=== PATIENT | male | born 1995 | race Caucasian/White ===

== ENCOUNTER 2016-12-21 08:36 | Inpatient (IN) | payer OTHER ==
[2016-12-21 10:33] VITALS: BMI 21.0
--- NOTE | 2016-12-21 13:01 | HP ---
CIWA Score - CIWA Score Nausea/Vomitin (n/v) Muscle Tremors: 3 Anxiety: 5 Agitation: 4-Moderately Restless Paroxysmal Sweats: 1-Minimal Palms Moist Orientation: 0-Oriented Tacttile Disturbances: 3-Moderate Itch/Numb/Burn Auditory Disturbances: 0-None Visual Disturbances: 0-None Headache: 0-None Present CIWA-Ar Total Score: 21 Admission ROS BHS - HPI Chief Complaint: DETOX TX FOR KLONOPIN DEPENDENCE Allergies/Adverse Reactions: Allergies Allergy/AdvReac Type Severity Reaction Status Date / Time Fish Containing Products Allergy Severe Hives Verified 12/21/16 10:23 NKDA Allergy Uncoded 12/21/16 10:38 History of Present Illness: 21 Y/O MALE WITH A HX OF KLONOPIN,CRACK,HEROIN AND MARIJUANA DEPENDENCE ON [facility] SEEKING DETOX TX. PT HAS NOT BEEN GOING TO THE [facility] CLINIC FOR 8 DAYS NOW. ON METHADONE 100 MG PO DAILY BUT MISSED 8 DAYS FROM CLINIC. PT FEELS VERY SICK WITH NAUSEA AND VOMITING NOW. Exam Limitations: No Limitations - Ebola screening Have you traveled outside of the country in the last 21 days: No Have you had contact with anyone from an Ebola affected area: No Have you been sick,other than usual withdrawal symptoms: No Do you have a fever: No - Review of Systems Constitutional: Chills, Loss of Appetite, Night Sweats, Changes in sleep EENT: reports: Tearing, Nose Congestion Respiratory: reports: No Symptoms reported Cardiac: reports: Lightheadedness GI: reports: Constipated, Diarrhea, Nausea, Poor Appetite, Poor Fluid Intake, Vomiting, Abdominal cramping : reports: No Symptoms Reported Musculoskeletal: reports: Back Pain, Joint Pain, Muscle Pain Integumentary: reports: Bruising (IVD TRACKS ON BOTH ELBOWS) Neuro: reports: Tremors, Unsteady Gait, Dizziness Endocrine: reports: No Symptoms Reported Hematology: reports: No Symptoms Reported Psychiatric: reports: Orientated x3, Agitated, Anxious Other Systems: Reviewed and Negative Patient History - Patient Medical History Hx Anemia: No Hx Asthma: No Hx Chronic Obstructive Pulmonary Disease (COPD): No Hx Cardiac Disorders: No Hx Hypertension: No Hx Hypercholesterolemia: No HX Cerebrovascular Accident: No Hx Seizures: No Hx Diabetes: No Hx Gastrointestinal Disorders: Yes (HEARTBURN) Hx Genitourinary Disorders: No Hx Sexually Transmitted Disorders: No Hx Renal Disease (ESRD): No Hx Thyroid Disease: No Hx Human Immunodeficiency Virus (HIV): No (NEGATIVE HX) Hx Hepatitis C: No Hx Depression: No Hx Suicide Attempt: No (DENIES) Hx Bipolar Disorder: No Hx Schizophrenia: No - Patient Surgical History Past Surgical History: No Hx Neurologic Surgery: No Hx Cataract Extraction: No Hx Cardiac Surgery: No Hx Lung Surgery: No Hx Breast Surgery: No Hx Breast Biopsy: No Hx Abdominal Surgery: No Hx Appendectomy: No Hx Cholecystectomy: No Hx Genitourinary Surgery: No Hx Section: No Hx Orthopedic Surgery: No Anesthesia Reaction: No - PPD History Previous Implant?: Yes Documented Results: Negative w/o proof Implanted On Prior [facility] Admission?: No PPD to be Administered?: Yes - Reproductive History Patient is a Female of Child Bearing Age (11 -55 yrs old): No (MALE) - Smoking Cessation Smoking history: Current every day smoker Have you smoked in the past 12 months: Yes Aproximately how many cigarettes per day: 10 Hx Chewing Tobacco Use: No Initiated information on smoking cessation: Yes 'Breaking Loose' booklet given: 12/21/16 - Substance & Tx. History Hx Alcohol Use: No (DENIES) Hx Substance Use: Yes (HEROIN/CRACK/KLONOPIN) Substance Use Type: Cocaine, Heroin, Tranquilizers Hx Substance Use Treatment: Yes ([facility] DETOX; [facility]) - Substances Abused Crack Route: Smoking Frequency: 3-6 times per week Amount used: $100 Age of first use: 21 Date of Last Use: 12/19/16 Heroin Route: Injection Frequency: Daily Amount used: 10 bags Age of first use: 19 Date of Last Use: 12/21/16 Klonopin Route: Oral Frequency: 3-6 times per week Amount used: 2-3 mg. Age of first use: 21 Date of Last Use: 12/19/16 Marijuana Route: Smoking Frequency: 3-6 times per week Amount used: $10 Age of first use: 15 Date of Last Use: 12/15/16 Family Disease History - Family Disease History Family History: Denies Admission Physical Exam BHS - Vital Signs Vital Signs: Vital Signs - 24 hr 12/21/16 10:25 Temperature 98.2 F Pulse Rate 54 L Respiratory 20 Rate Blood Pressure 129/86 - Physical General Appearance: Yes: Moderate Distress, Irritable, Anxious HEENTM: Yes: EOMI, Normocephalic, KAI, Pharynx Normal Respiratory: Yes: Chest Non-Tender, Lungs Clear, Normal Breath Sounds, No Respiratory Distress Neck: Yes: No masses,lesions,Nodules, Supple, Trachea in good position Breast: Yes: Breast Exam Deferred Cardiology: Yes: Regular Rhythm, Regular Rate, S1, S2 Abdominal: Yes: Normal Bowel Sounds, Non Tender, Flat, Soft Genitourinary: Yes: Other (N/C) Musculoskeletal: Yes: full range of Motion, Gait Steady Extremities: Yes: Normal Range of Motion, Non-Tender 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 Cleared for Admission [facility] - Detox or Rehab [facility] Level of Care: Medically Managed Detox Regimen/Protocol: Valium [facility] Breath Alcohol Content Breath Alcohol Content: 0 Urine Drug Screen - Results Drug Screen Negative: No Urine Drug Screen Results: THC-Marijuana, DARYA-Cocaine, OPI-Opiates, BZO- Benzodiazepines, MTD-Methadone, OXY-Oxycodone
[2016-12-21] MEDS ORDERED: MAGNESIUM HYDROX 2400MG/30ML ORAL SUSPENSION 30 ML CUP PO PRN (13:15)
[2016-12-21] MEDS ORDERED: P-EPHED 60MG/TRIPROLIDI 2.5MG TABLET PO PRN (13:15)
[2016-12-21] MEDS ORDERED: MENTHOL/PHENOL 1 EACH UD MM PRN (13:15)
[2016-12-21] MEDS ORDERED: IBUPROFEN 400 MG TABLET (FP) PO PRN (13:15)
[2016-12-21] MEDS ORDERED: MAGNESIUM CITRATE 300 ML BOTTLE PO PRN (13:15)
[2016-12-21] MEDS ORDERED: LOPERAMIDE HCL 2 MG CAPSULE PO PRN (13:15)
[2016-12-21] MEDS ORDERED: guaiFENesin/D-METHORPHAN HB 10 ML UNIT-DOSE CUPS PO PRN (13:15)
[2016-12-21] MEDS ORDERED: ACETAMINOPHEN 325 MG TABLET (FP) PO PRN (13:15)
[2016-12-21] MEDS ORDERED: hydrOXYzine PAMOATE 25 MG CAPSULE (FP) PO PRN (13:15)
[2016-12-21] MEDS ORDERED: diazePAM 5 MG TABLET PO ONE (13:58)
[2016-12-21] MEDS ORDERED: METHADONE HCL 40 MG DISPERSABLE TABLET PO ONE (14:01)
[2016-12-21] MEDS: TRIMETHOBENZAMIDE HCL 200MG/2ML INJ IM PRN ×2 (14:10→20:04)
[2016-12-21] MEDS: NICOTINE 14 MG/24 HOURS TOPICAL PATCH TD SCH (15:01)
[2016-12-21] MEDS: diazePAM 5 MG TABLET PO PRN ×2 (15:04→20:18)
[2016-12-21] MEDS: diazePAM 5 MG TABLET PO SCH ×2 (15:05→23:02)
--- NOTE | 2016-12-21 16:11 | EKG ---
Test Reason : Blood Pressure : / mmHG Vent. Rate : 054 BPM Atrial Rate : 063 BPM P-R Int : 000 ms QRS Dur : 094 ms QT Int : 424 ms P-R-T Axes : 050 063 044 degrees QTc Int : 402 ms SINUS RHYTHM WITH COMPLETE HEART BLOCK AND JUNCTIONAL RHYTHM ABNORMAL ECG NO PREVIOUS ECGS AVAILABLE Confirmed by SAM OBREGON MD ([id number]) on 12/21/2016 4:11:10 PM Referred By: Trevin Berry Confirmed By:SAM OBREGON MD
[2016-12-21] MEDS: MAG HYDROX/AL HYDROX/SIMETH 30 ML UNIT-DOSE CUP PO PRN (17:31)
[2016-12-21 17:32] LABS: URINE APPEARANCE CLOUDY; URINE BILIRUBIN NEGATIVE (NEGATIVE); URINE BLOOD NEGATIVE (NEGATIVE); URINE COLOR YELLOW; URINE GLUCOSE (UA) 1+ (NEGATIVE); URINE KETONE 2+ (NEGATIVE); URINE LEUK ESTERASE NEGATIVE (NEGATIVE); URINE NITRITE NEGATIVE (NEGATIVE); URINE UROBILINOGEN NEGATIVE E.U./dl (0.2-1.0)
[2016-12-21 17:34] LABS: URINE PROTEIN 1+ (NEGATIVE)
[2016-12-21 19:09] LABS: URINE BACTERIA RARE /hpf (NONE SEEN); URINE MUCUS MODERATE; URINE RBC 2 /hpf (0-3); URINE WBC 1 /hpf (3-5)
[2016-12-21] MEDS: THIAMINE HCL 100 MG TABLET (FP) PO SCH (23:03)
[2016-12-21] MEDS ORDERED: ONDANSETRON *ODT* 4 MG TABLET SL PRN (23:12)
[2016-12-22] MEDS: MAG HYDROX/AL HYDROX/SIMETH 30 ML UNIT-DOSE CUP PO PRN (00:53)
[2016-12-22] MEDS ORDERED: cloNIDine HCL 0.1 MG TABLET PO ONE (01:54)
[2016-12-22] MEDS: diazePAM 5 MG TABLET PO PRN ×3 (02:01→17:55)
[2016-12-22] MEDS: TRIMETHOBENZAMIDE HCL 200MG/2ML INJ IM PRN (02:04)
[2016-12-22] MEDS ORDERED: METHADONE HCL 40 MG DISPERSABLE TABLET ONE (04:19)
[2016-12-22] MEDS ORDERED: METHADONE HCL 10 MG TABLET ONE (04:19)
[2016-12-22] MEDS: diazePAM 5 MG TABLET PO SCH ×3 (05:54→22:10)
[2016-12-22] MEDS ORDERED: METHADONE HCL 10 MG TABLET PO SCH ×2 (06:00)
[2016-12-22] MEDS ORDERED: METHADONE 40 MG, METHADONE 10 MG PO ONE (06:00)
[2016-12-22 10:04] LABS: MCH 31.1 pg (25.7-33.7); MCHC 33.9 g/dl (32.0-35.9); MEAN CELL VOLUME 91.8 fl (80-96); MEAN PLT VOLUME 8.4 fl (7.5-11.1); PLATELET COUNT 246 K/MM3 (134-434); RDW 12.8 % (11.9-15.9)
[2016-12-22] MEDS: PRENATAL VITAMINS W/ FOLIC ACID TABLET (FP) PO SCH (10:12)
[2016-12-22] MEDS: NICOTINE 14 MG/24 HOURS TOPICAL PATCH TD SCH (10:12)
[2016-12-22 10:44] LABS: ALBUMIN 4.6 g/dl (3.4-5.0); ALK PHOS 104 U/L (45-117); ANION GAP 11 (8-16); BILIRUBIN,TOTAL 0.4 mg/dL (0.2-1.0); CALCIUM 9.9 mg/dL (8.5-10.1); CO2 28 mmol/L (21-32); CREATININE 0.8 mg/dL (0.7-1.3); GLUCOSE,RANDOM 120 mg/dL (74-106); SGPT/ALT 23 U/L (12-78); TOT PROT 7.9 g/dl (6.4-8.2)
--- NOTE | 2016-12-22 11:30 | PN ---
S CIWA - CIWA Score Nausea/Vomitin-Mild Nausea/No Vomiting Muscle Tremors: 4-Moderate,w/Arms Extend Anxiety: 3 Agitation: 4-Moderately Restless Paroxysmal Sweats: 3 Orientation: 0-Oriented Tacttile Disturbances: 0-None Auditory Disturbances: 0-None Visual Disturbances: 0-None Headache: 0-None Present CIWA-Ar Total Score: 15 BHS Progress Note (SOAP) Subjective: sweats nausea tired interrupted sleep body aches Objective: 12/22/16 11:28 Vital Signs Temperature 98.1 F 12/22/16 09:46 Pulse Rate 68 12/22/16 09:46 Respiratory Rate 20 12/22/16 09:46 Blood Pressure 109/68 12/22/16 09:46 O2 Sat by Pulse Oximetry (%) Laboratory Tests 12/21/16 12/22/16 13:00 06:10 WBC 8.0 RBC 4.15 Hgb 12.9 Hct 38.1 MCV 91.8 MCHC 33.9 RDW 12.8 Plt Count 246 MPV 8.4 Urine Color Yellow Urine Appearance Cloudy Urine pH 6.0 Ur Specific [place] 1.033 Urine Protein 1+ H Urine Glucose (UA) 1+ H Urine Ketones 2+ H Urine Blood Negative Urine Nitrite Negative Urine Bilirubin Negative Urine Urobilinogen Negative Ur Leukocyte Esterase Negative Urine RBC 2 Urine WBC 1 Ur Epithelial Cells Rare Urine Bacteria Rare Urine Mucus Moderate labs pending awake/alert ambulating no acute distress Assessment: 12/22/16 11:30 withdrawal sx Plan: continue detox increase fluids tigan or zofran ordered if needed.
[2016-12-22 11:37] LABS: SGOT/AST 4 U/L (15-37)
--- NOTE | 2016-12-22 15:04 | EKG ---
Test Reason : Blood Pressure : / mmHG Vent. Rate : 061 BPM Atrial Rate : 061 BPM P-R Int : 140 ms QRS Dur : 102 ms QT Int : 440 ms P-R-T Axes : 063 048 034 degrees QTc Int : 442 ms SINUS RHYTHM WITH MARKED SINUS ARRHYTHMIA OTHERWISE NORMAL ECG WHEN COMPARED WITH ECG OF 21-DEC-2016 13:33, SINUS RHYTHM HAS REPLACED JUNCTIONAL RHYTHM Confirmed by CHRISTOPHER FORBES MD ([id number]) on 12/22/2016 3:04:17 PM Referred By: Trevin Berry Confirmed By:CHRISTOPHER FORBES MD
[2016-12-22] MEDS: THIAMINE HCL 100 MG TABLET (FP) PO SCH (22:09)
[2016-12-22] MEDS: diphenhydrAMINE HCL 50 MG CAPSULE PO PRN (22:10)
[2016-12-23] MEDS ORDERED: METHADONE HCL 10 MG TABLET ONE (05:23)
[2016-12-23] MEDS ORDERED: METHADONE HCL 40 MG DISPERSABLE TABLET ONE (05:24)
[2016-12-23] MEDS ORDERED: METHADONE 40 MG, METHADONE 20 MG PO ONE (06:00)
[2016-12-23] MEDS ORDERED: METHADONE HCL 10 MG TABLET PO SCH ×2 (06:00)
[2016-12-23] MEDS: diazePAM 5 MG TABLET PO PRN ×3 (06:09→17:36)
[2016-12-23] MEDS: NICOTINE 14 MG/24 HOURS TOPICAL PATCH TD SCH (10:07)
[2016-12-23] MEDS: PRENATAL VITAMINS W/ FOLIC ACID TABLET (FP) PO SCH (10:08)
[2016-12-23] MEDS: diazePAM 5 MG TABLET PO SCH ×2 (10:08→22:04)
--- NOTE | 2016-12-23 10:16 | PN ---
S CIWA - CIWA Score Nausea/Vomitin Muscle Tremors: 3 Anxiety: 3 Agitation: 3 Paroxysmal Sweats: 1-Minimal Palms Moist Orientation: 0-Oriented Tacttile Disturbances: 1-Very Mild Itch/Numbness Auditory Disturbances: 1-Very Mild Visual Disturbances: 1-Very Mild Sensitivity Headache: 2-Mild CIWA-Ar Total Score: 18 BHS Progress Note (SOAP) Subjective: ALERT,IRRITABLE,ANXIOUS,INTERRUPTED SLEEP,PAIN IN THE BODY AND BACK Objective: 12/23/16 10:13 Vital Signs Temperature 98.4 F 12/23/16 09:54 Pulse Rate 79 12/23/16 09:54 Respiratory Rate 16 12/23/16 09:54 Blood Pressure 115/64 12/23/16 09:54 O2 Sat by Pulse Oximetry (%) EKG SINUS RHYTHM WITH SINUS ARRHYTHMIA Laboratory Last Values WBC 8.0 K/mm3 (4.0-10.0) 12/22/16 06:10 RBC 4.15 M/mm3 (4.00-5.60) 12/22/16 06:10 Hgb 12.9 GM/dL (11.7-16.9) 12/22/16 06:10 Hct 38.1 % (35.4-49) 12/22/16 06:10 MCV 91.8 fl (80-96) 12/22/16 06:10 MCHC 33.9 g/dl (32.0-35.9) 12/22/16 06:10 RDW 12.8 % (11.9-15.9) 12/22/16 06:10 Plt Count 246 K/MM3 (134-434) 12/22/16 06:10 MPV 8.4 fl (7.5-11.1) 12/22/16 06:10 Sodium 139 mmol/L (136-145) 12/22/16 06:10 Potassium 4.6 mmol/L (3.5-5.1) 12/22/16 06:10 Chloride 100 mmol/L (98-107) 12/22/16 06:10 Carbon Dioxide 28 mmol/L (21-32) 12/22/16 06:10 Anion Gap 11 (8-16) 12/22/16 06:10 BUN 8 mg/dL (7-18) 12/22/16 06:10 Creatinine 0.8 mg/dL (0.7-1.3) 12/22/16 06:10 Creat Clearance w eGFR > 60 (>60) 12/22/16 06:10 Random Glucose 120 mg/dL (74-106) H 12/22/16 06:10 Calcium 9.9 mg/dL (8.5-10.1) 12/22/16 06:10 Total Bilirubin 0.4 mg/dL (0.2-1.0) 12/22/16 06:10 AST 4 U/L (15-37) L 12/22/16 06:10 ALT 23 U/L (12-78) 12/22/16 06:10 Alkaline Phosphatase 104 U/L (45-117) 12/22/16 06:10 Total Protein 7.9 g/dl (6.4-8.2) 12/22/16 06:10 Albumin 4.6 g/dl (3.4-5.0) 12/22/16 06:10 Urine Color Yellow 12/21/16 13:00 Urine Appearance Cloudy 12/21/16 13:00 Urine pH 6.0 (5.0-8.0) 12/21/16 13:00 Ur Specific [place] 1.033 (1.001-1.035) 12/21/16 13:00 Urine Protein 1+ (NEGATIVE) H 12/21/16 13:00 Urine Glucose (UA) 1+ (NEGATIVE) H 12/21/16 13:00 Urine Ketones 2+ (NEGATIVE) H 12/21/16 13:00 Urine Blood Negative (NEGATIVE) 12/21/16 13:00 Urine Nitrite Negative (NEGATIVE) 12/21/16 13:00 Urine Bilirubin Negative (NEGATIVE) 12/21/16 13:00 Urine Urobilinogen Negative E.U./dl (0.2-1.0) 12/21/16 13:00 Ur Leukocyte Esterase Negative (NEGATIVE) 12/21/16 13:00 Urine RBC 2 /hpf (0-3) 12/21/16 13:00 Urine WBC 1 /hpf (3-5) 12/21/16 13:00 Ur Epithelial Cells Rare /hpf (FEW) 12/21/16 13:00 Urine Bacteria Rare /hpf (NONE SEEN) 12/21/16 13:00 Urine Mucus Moderate 12/21/16 13:00 RPR Titer Nonreactive (NONREACTIVE) 12/22/16 06:10 Hepatitis C Antibody <0.1 s/co ratio (0.0-0.9) 12/21/16 13:10 Assessment: 12/23/16 10:15 WITHDRAWAL SYMPTOM Plan: CONTINUE DETOX
[2016-12-23] MEDS: NICOTINE POLACRILEX 2 MG GUM BUC PRN ×2 (12:45→20:01)
[2016-12-23] MEDS: diphenhydrAMINE HCL 50 MG CAPSULE PO PRN (22:04)
[2016-12-23] MEDS: THIAMINE HCL 100 MG TABLET (FP) PO SCH (22:04)
[2016-12-24] MEDS ORDERED: METHADONE HCL 10 MG TABLET ONE (05:42)
[2016-12-24] MEDS ORDERED: METHADONE HCL 40 MG DISPERSABLE TABLET ONE (05:42)
[2016-12-24] MEDS: diazePAM 5 MG TABLET PO PRN (05:43)
[2016-12-24] MEDS ORDERED: METHADONE HCL 10 MG TABLET PO SCH ×2 (06:00)
[2016-12-24] MEDS ORDERED: METHADONE 40 MG, METHADONE 30 MG PO ONE (06:00)
[2016-12-24] MEDS: diazePAM 5 MG TABLET PO SCH ×2 (11:10→22:41)
[2016-12-24] MEDS: NICOTINE 14 MG/24 HOURS TOPICAL PATCH TD SCH (11:10)
[2016-12-24] MEDS: PRENATAL VITAMINS W/ FOLIC ACID TABLET (FP) PO SCH (11:10)
[2016-12-24] MEDS: NICOTINE POLACRILEX 2 MG GUM BUC PRN ×2 (11:34→15:32)
--- NOTE | 2016-12-24 12:11 | PN ---
BHS Progress Note (SOAP) Subjective: Irritability, sleeplessness, generalized pain Objective: 12/24/16 12:10 Vital Signs - 8 hr 12/24/16 12/24/16 06:00 11:16 Temperature 97.7 F 98.1 F Pulse Rate 65 89 Respiratory 16 16 Rate Blood Pressure 97/61 126/71 Laboratory Last Values WBC 8.0 K/mm3 (4.0-10.0) 12/22/16 06:10 RBC 4.15 M/mm3 (4.00-5.60) 12/22/16 06:10 Hgb 12.9 GM/dL (11.7-16.9) 12/22/16 06:10 Hct 38.1 % (35.4-49) 12/22/16 06:10 MCV 91.8 fl (80-96) 12/22/16 06:10 MCHC 33.9 g/dl (32.0-35.9) 12/22/16 06:10 RDW 12.8 % (11.9-15.9) 12/22/16 06:10 Plt Count 246 K/MM3 (134-434) 12/22/16 06:10 MPV 8.4 fl (7.5-11.1) 12/22/16 06:10 Sodium 139 mmol/L (136-145) 12/22/16 06:10 Potassium 4.6 mmol/L (3.5-5.1) 12/22/16 06:10 Chloride 100 mmol/L (98-107) 12/22/16 06:10 Carbon Dioxide 28 mmol/L (21-32) 12/22/16 06:10 Anion Gap 11 (8-16) 12/22/16 06:10 BUN 8 mg/dL (7-18) 12/22/16 06:10 Creatinine 0.8 mg/dL (0.7-1.3) 12/22/16 06:10 Creat Clearance w eGFR > 60 (>60) 12/22/16 06:10 Random Glucose 120 mg/dL (74-106) H 12/22/16 06:10 Calcium 9.9 mg/dL (8.5-10.1) 12/22/16 06:10 Total Bilirubin 0.4 mg/dL (0.2-1.0) 12/22/16 06:10 AST 4 U/L (15-37) L 12/22/16 06:10 ALT 23 U/L (12-78) 12/22/16 06:10 Alkaline Phosphatase 104 U/L (45-117) 12/22/16 06:10 Total Protein 7.9 g/dl (6.4-8.2) 12/22/16 06:10 Albumin 4.6 g/dl (3.4-5.0) 12/22/16 06:10 Urine Color Yellow 12/21/16 13:00 Urine Appearance Cloudy 12/21/16 13:00 Urine pH 6.0 (5.0-8.0) 12/21/16 13:00 Ur Specific [place] 1.033 (1.001-1.035) 12/21/16 13:00 Urine Protein 1+ (NEGATIVE) H 12/21/16 13:00 Urine Glucose (UA) 1+ (NEGATIVE) H 12/21/16 13:00 Urine Ketones 2+ (NEGATIVE) H 12/21/16 13:00 Urine Blood Negative (NEGATIVE) 12/21/16 13:00 Urine Nitrite Negative (NEGATIVE) 12/21/16 13:00 Urine Bilirubin Negative (NEGATIVE) 12/21/16 13:00 Urine Urobilinogen Negative E.U./dl (0.2-1.0) 12/21/16 13:00 Ur Leukocyte Esterase Negative (NEGATIVE) 12/21/16 13:00 Urine RBC 2 /hpf (0-3) 12/21/16 13:00 Urine WBC 1 /hpf (3-5) 12/21/16 13:00 Ur Epithelial Cells Rare /hpf (FEW) 12/21/16 13:00 Urine Bacteria Rare /hpf (NONE SEEN) 12/21/16 13:00 Urine Mucus Moderate 12/21/16 13:00 RPR Titer Nonreactive (NONREACTIVE) 12/22/16 06:10 Hepatitis C Antibody <0.1 s/co ratio (0.0-0.9) 12/21/16 13:10 Labs noted Assessment: 12/24/16 12:10 withdrawal sx Plan: continue detox
[2016-12-24] MEDS: THIAMINE HCL 100 MG TABLET (FP) PO SCH (22:40)
[2016-12-24] MEDS: diphenhydrAMINE HCL 50 MG CAPSULE PO PRN (22:41)
[2016-12-25] MEDS ORDERED: METHADONE HCL 10 MG TABLET PO SCH (06:00)
[2016-12-25] MEDS ORDERED: METHADONE HCL 40 MG DISPERSABLE TABLET PO SCH (06:00)
[2016-12-25] MEDS ORDERED: diazePAM 5 MG TABLET PO SCH (10:00)
--- NOTE | 2016-12-25 10:01 | DS ---
[facility] Detox Discharge Summary Admission Date: 12/21/16 Discharge Date: 12/25/16 - History Present History: Alcohol Dependence, Cocaine Dependence, Sedative Dependence, MMTP Pertinent Past History: Denies - Physical Exam Results Vital Signs: Vital Signs Temperature 97.3 F L 12/25/16 06:00 Pulse Rate 61 12/25/16 06:00 Respiratory Rate 16 12/25/16 06:00 Blood Pressure 104/60 12/25/16 06:00 O2 Sat by Pulse Oximetry (%) Laboratory Last Values WBC 8.0 K/mm3 (4.0-10.0) 12/22/16 06:10 RBC 4.15 M/mm3 (4.00-5.60) 12/22/16 06:10 Hgb 12.9 GM/dL (11.7-16.9) 12/22/16 06:10 Hct 38.1 % (35.4-49) 12/22/16 06:10 MCV 91.8 fl (80-96) 12/22/16 06:10 MCHC 33.9 g/dl (32.0-35.9) 12/22/16 06:10 RDW 12.8 % (11.9-15.9) 12/22/16 06:10 Plt Count 246 K/MM3 (134-434) 12/22/16 06:10 MPV 8.4 fl (7.5-11.1) 12/22/16 06:10 Sodium 139 mmol/L (136-145) 12/22/16 06:10 Potassium 4.6 mmol/L (3.5-5.1) 12/22/16 06:10 Chloride 100 mmol/L (98-107) 12/22/16 06:10 Carbon Dioxide 28 mmol/L (21-32) 12/22/16 06:10 Anion Gap 11 (8-16) 12/22/16 06:10 BUN 8 mg/dL (7-18) 12/22/16 06:10 Creatinine 0.8 mg/dL (0.7-1.3) 12/22/16 06:10 Creat Clearance w eGFR > 60 (>60) 12/22/16 06:10 Random Glucose 120 mg/dL (74-106) H 12/22/16 06:10 Calcium 9.9 mg/dL (8.5-10.1) 12/22/16 06:10 Total Bilirubin 0.4 mg/dL (0.2-1.0) 12/22/16 06:10 AST 4 U/L (15-37) L 12/22/16 06:10 ALT 23 U/L (12-78) 12/22/16 06:10 Alkaline Phosphatase 104 U/L (45-117) 12/22/16 06:10 Total Protein 7.9 g/dl (6.4-8.2) 12/22/16 06:10 Albumin 4.6 g/dl (3.4-5.0) 12/22/16 06:10 Urine Color Yellow 12/21/16 13:00 Urine Appearance Cloudy 12/21/16 13:00 Urine pH 6.0 (5.0-8.0) 12/21/16 13:00 Ur Specific [place] 1.033 (1.001-1.035) 12/21/16 13:00 Urine Protein 1+ (NEGATIVE) H 12/21/16 13:00 Urine Glucose (UA) 1+ (NEGATIVE) H 12/21/16 13:00 Urine Ketones 2+ (NEGATIVE) H 12/21/16 13:00 Urine Blood Negative (NEGATIVE) 12/21/16 13:00 Urine Nitrite Negative (NEGATIVE) 12/21/16 13:00 Urine Bilirubin Negative (NEGATIVE) 12/21/16 13:00 Urine Urobilinogen Negative E.U./dl (0.2-1.0) 12/21/16 13:00 Ur Leukocyte Esterase Negative (NEGATIVE) 12/21/16 13:00 Urine RBC 2 /hpf (0-3) 12/21/16 13:00 Urine WBC 1 /hpf (3-5) 12/21/16 13:00 Ur Epithelial Cells Rare /hpf (FEW) 12/21/16 13:00 Urine Bacteria Rare /hpf (NONE SEEN) 12/21/16 13:00 Urine Mucus Moderate 12/21/16 13:00 RPR Titer Nonreactive (NONREACTIVE) 12/22/16 06:10 Hepatitis C Antibody <0.1 s/co ratio (0.0-0.9) 12/21/16 13:10 labs noted Pertinent Admission Physical Exam Findings: Withdrawal Symptoms - Treatment Hospital Course: Detox Protocol Followed, Detoxed Safely, Responded well, Discharged Condition Good - Medication Discharge Medications: Ambulatory Orders NK [No Known Home Medication] 12/21/16 - Diagnosis (1) Cannabis dependence, uncomplicated Current Visit: Yes Status: Acute (2) Cocaine dependence, uncomplicated Current Visit: Yes Status: Acute (3) Sedative, hypnotic or anxiolytic dependence with withdrawal, uncomplicated Current Visit: Yes Status: Acute (4) Methadone maintenance therapy patient Current Visit: Yes Status: Chronic (5) Alcohol dependence with withdrawal, uncomplicated Current Visit: Yes Status: Acute - AMA Did Patient Leave Against Medical Advice: No
[2016-12-25 10:12] VITALS: BP 120/56; PULSE 77; TEMP 97.2
[2016-12-26] MEDS ORDERED: METHADONE 80 MG, METHADONE 10 MG PO ONE (06:00)
[2016-12-26] MEDS ORDERED: METHADONE HCL 10 MG TABLET PO SCH ×2 (06:00)
[2016-12-27] MEDS ORDERED: METHADONE 80 MG, METHADONE 20 MG PO SCH (06:00)
[2016-12-27] MEDS ORDERED: METHADONE HCL 10 MG TABLET PO SCH ×3 (06:00)
== END 2016-12-25 09:35 | disposition home or self-care (01) | DRG 773 ==
LOC: YASAS 08:36 → Y6N 12:00
PROVIDERS: ADMIT Internal Medicine Addiction Medicine; ATTEND Internal Medicine Addiction Medicine
PROC: HZ2ZZZZ Detoxification Services for Substance Abuse Treatment (ICD-10-PCS; principal; 2016-12-25)
DX: F11.20 Opioid dependence, uncomplicated (principal); F13.230 Sedative, hypnotic or anxiolytic dependence with withdrawal, uncomplicated; F10.230 Alcohol dependence with withdrawal, uncomplicated; F14.20 Cocaine dependence, uncomplicated; F12.20 Cannabis dependence, uncomplicated; F17.210 Nicotine dependence, cigarettes, uncomplicated
CPT/HCPCS: 36415; 80053; 81003; 81015; 85027; 86593; 93005; 93010

== ENCOUNTER 2017-10-31 10:08 | Inpatient (IN) | payer OTHER ==
[2017-10-31 10:26] VITALS: BMI 22.8
--- NOTE | 2017-10-31 11:13 | HP ---
COWS - Scale Resting Pulse: 1= IN 81-100 Sweatin= Chills/Flushing Restless Observation: 3= Extraneous Movement Pupil Size: 2= Moderately Dilated Bone or Joint Aches: 2= Severe Diffuse Aches Runny Nose/ Eye Tearin= Runny Nose/Eyes GI Upset > 30mins: 2= Nausea/Diarrhea Tremor Observation: 2= Slight Tremor Visible Yawning Observation: 1= 1-2x During Session Anxiety or Irritability: 2=Irritable/Anxious Goose Flesh Skin: 0=Smooth Skin COWS Score: 18 Admission ROS S - HPI Chief Complaint: i need help to stop using heroin Allergies/Adverse Reactions: Allergies Allergy/AdvReac Type Severity Reaction Status Date / Time Fish Containing Products Allergy Severe Hives Verified 10/31/17 11:06 No Known Drug Allergies Allergy Verified 10/31/17 11:06 NKDA Allergy Uncoded 10/31/17 11:06 History of Present Illness: this 22 years old male with heroin dependence,seeking detox,last detox 12/21/16 to 12/25/16 [facility] also abuse cocaine,benzo,marijuana history of fx of left wrist nicotine dependence longest period of sobriety 2 years Exam Limitations: No Limitations - Ebola screening Have you traveled outside of the country in the last 21 days: No Have you had contact with anyone from an Ebola affected area: No Have you been sick,other than usual withdrawal symptoms: No Do you have a fever: No - Review of Systems Constitutional: Chills, Loss of Appetite, Malaise, Night Sweats, Changes in sleep, Unexplained wgt Loss EENT: reports: Tearing, Nose Congestion Respiratory: reports: No Symptoms reported, Shortness of Breath Cardiac: reports: No Symptoms Reported GI: reports: Diarrhea, Nausea, Poor Appetite, Vomiting : reports: No Symptoms Reported Musculoskeletal: reports: Back Pain, Joint Pain, Muscle Pain Integumentary: reports: Dryness Neuro: reports: Headache, Tremors Endocrine: reports: No Symptoms Reported Hematology: reports: No Symptoms Reported Psychiatric: reports: Depressed Other Systems: Reviewed and Negative Patient History - Patient Medical History Hx Anemia: No Hx Asthma: No Hx Chronic Obstructive Pulmonary Disease (COPD): No Hx Cancer: No Hx Cardiac Disorders: No Hx Congestive Heart Failure: No Hx Hypertension: No Hx Hypercholesterolemia: No Hx Pacemaker: No HX Cerebrovascular Accident: No Hx Seizures: No Hx Dementia: No Hx Diabetes: No Hx Gastrointestinal Disorders: Yes (HEARTBURN) Hx Liver Disease: No Hx Genitourinary Disorders: No Hx Sexually Transmitted Disorders: No Hx Renal Disease (ESRD): No Hx Thyroid Disease: No Hx Human Immunodeficiency Virus (HIV): No (NEGATIVE HX) Hx Hepatitis C: No Hx Depression: No Hx Suicide Attempt: No (DENIES) Hx Bipolar Disorder: No Hx Schizophrenia: No Other Medical History: no suicidal,no homicidal,depression - Patient Surgical History Past Surgical History: No Hx Neurologic Surgery: No Hx Cataract Extraction: No Hx Cardiac Surgery: No Hx Lung Surgery: No Hx Breast Surgery: No Hx Breast Biopsy: No Hx Abdominal Surgery: No Hx Appendectomy: No Hx Cholecystectomy: No Hx Genitourinary Surgery: No Hx Section: No Hx Orthopedic Surgery: No Anesthesia Reaction: No - PPD History Previous Implant?: Yes Documented Results: Negative w/proof Implanted On Prior [facility] Admission?: Yes Date: 12/23/16 Results: 0 mm PPD to be Administered?: No - Smoking Cessation Smoking history: Current every day smoker Have you smoked in the past 12 months: Yes Aproximately how many cigarettes per day: 10 Hx Chewing Tobacco Use: No Initiated information on smoking cessation: Yes 'Breaking Loose' booklet given: 10/31/17 - Substance & Tx. History Hx Alcohol Use: No Hx Substance Use: Yes Substance Use Type: Cocaine, Heroin, Marijuana Hx Substance Use Treatment: Yes ([facility] 12/21/16 to 12/25/16) - Substances Abused Heroin Route: Injection Frequency: Daily Amount used: 5 BAGS Age of first use: 20 Date of Last Use: 10/31/17 Marijuana/Hashish Route: Smoking Frequency: Daily Amount used: 1 JOINT Age of first use: 14 Date of Last Use: 10/28/17 Crack Route: Smoking Frequency: 1-3 times last 30 days Amount used: 1 GRAM Age of first use: 20 Date of Last Use: 10/24/17 Alprazolam (Xanax) Route: Oral Frequency: 1-3 times last 30 days Amount used: 0.25MG Age of first use: 22 Date of Last Use: 10/29/17 Family Disease History - Family Disease History Family History: Denies Admission Physical Exam BHS - Vital Signs Vital Signs: Vital Signs - 24 hr 10/31/17 10:15 Temperature 98.2 F Pulse Rate 92 H Respiratory 18 Rate Blood Pressure 124/80 - Physical General Appearance: Yes: Moderate Distress, Tremorous, Irritable, Sweating, Anxious HEENTM: Yes: KAI, Pharynx Normal, Nasal Congestion Respiratory: Yes: Lungs Clear, Normal Breath Sounds, No Respiratory Distress Neck: Yes: Within Normal Limits, Supple, Trachea in good position Breast: Yes: Within Normal Limits Cardiology: Yes: Within Normal Limits, Regular Rhythm, Regular Rate, S1, S2 Abdominal: Yes: Within Normal Limits, Normal Bowel Sounds, Non Tender, Flat Genitourinary: Yes: Within Normal Limits Back: Yes: Normal Inspection, Muscle Spasm Musculoskeletal: Yes: Back pain, Joint Stiffness, Muscle Pain Extremities: Yes: Tremors 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, 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 Oriented, Alert, Motor Strength 5/5 Integumentary: Yes: Dry, Track [place] Lymphatic: Yes: Within Normal Limits - Diagnostic (1) Opioid dependence with withdrawal Current Visit: Yes Status: Acute (2) Cocaine dependence Current Visit: Yes Status: Acute (3) Cannabis dependence Current Visit: Yes Status: Acute (4) Nicotine dependence Current Visit: Yes Status: Acute (5) Depression Current Visit: Yes Status: Acute (6) Weight loss Current Visit: Yes Status: Acute Cleared for Admission [facility] - Detox or Rehab [facility] Level of Care: Medically Managed Detox Regimen/Protocol: Methadone [facility] Breath Alcohol Content Breath Alcohol Content: 0 Urine Drug Screen - Results Drug Screen Negative: No Urine Drug Screen Results: THC-Marijuana, DARYA-Cocaine, OPI-Opiates, AMP- Amphetamines, MET-Methamphetamine, BZO-Benzodiazepines, MTD-Methadone, OXY- Oxycodone
[2017-10-31] MEDS ORDERED: MAGNESIUM CITRATE 300 ML BOTTLE PO PRN (11:34)
[2017-10-31] MEDS ORDERED: MAGNESIUM HYDROX 2400MG/30ML ORAL SUSPENSION 30 ML CUP PO PRN (11:34)
[2017-10-31] MEDS ORDERED: MENTHOL/PHENOL 1 EACH UD MM PRN (11:34)
[2017-10-31] MEDS ORDERED: ACETAMINOPHEN 325 MG TABLET (FP) PO PRN (11:34)
[2017-10-31] MEDS ORDERED: LOPERAMIDE HCL 2 MG CAPSULE PO PRN (11:34)
[2017-10-31] MEDS ORDERED: guaiFENesin/D-METHORPHAN HB 10 ML UNIT-DOSE CUPS PO PRN (11:34)
[2017-10-31] MEDS ORDERED: P-EPHED 60MG/TRIPROLIDI 2.5MG TABLET PO PRN (11:34)
[2017-10-31] MEDS ORDERED: METHADONE HCL 10 MG TABLET (FOR DETOX USE ONLY) PO ONE ×2 (12:15→23:00)
[2017-10-31] MEDS: diazePAM 5 MG TABLET PO PRN ×3 (12:49→20:24)
[2017-10-31] MEDS: cloNIDine HCL 0.1 MG TABLET PO SCH ×2 (12:50→22:05)
[2017-10-31] MEDS: NICOTINE 21 MG/24 HOURS TOPICAL PATCH TD SCH (12:50)
[2017-10-31] MEDS: MAG HYDROX/AL HYDROX/SIMETH 30 ML UNIT-DOSE CUP PO PRN (12:55)
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
[2017-10-31] MEDS: CYCLOBENZAPRINE HCL 10 MG TABLET (FP) PO PRN (22:05)
[2017-10-31] MEDS: THIAMINE HCL 100 MG TABLET (FP) PO SCH (22:05)
[2017-10-31 22:31] LABS: URINE APPEARANCE TURBID; URINE BILIRUBIN NEGATIVE (NEGATIVE); URINE BLOOD NEGATIVE (NEGATIVE); URINE COLOR YELLOW; URINE GLUCOSE (UA) NEGATIVE (NEGATIVE); URINE KETONE TRACE (NEGATIVE); URINE LEUK ESTERASE NEGATIVE (NEGATIVE); URINE NITRITE NEGATIVE (NEGATIVE); URINE PROTEIN NEGATIVE (NEGATIVE); URINE UROBILINOGEN NEGATIVE mg/dL (0.2-1.0)
[2017-11-01] MEDS: diazePAM 5 MG TABLET PO PRN ×5 (00:31→20:05)
[2017-11-01] MEDS: NICOTINE POLACRILEX 2 MG GUM BUC PRN (06:07)
[2017-11-01] MEDS ORDERED: TRIMETHOBENZAMIDE HCL 200MG/2ML INJ IM ONE (09:26)
[2017-11-01] MEDS ORDERED: METHADONE DETOX 10 MG/1 ML [20ML VIAL] IM ONE (09:29)
[2017-11-01 09:49] LABS: HEMATOCRIT 41.6 % (35.4-49); HEMOGLOBIN 13.9 GM/dL (11.7-16.9); MCH 31.2 pg (25.7-33.7); MCHC 33.4 g/dl (32.0-35.9); MEAN CELL VOLUME 93.6 fl (80-96); MEAN PLT VOLUME 7.8 fl (7.5-11.1); PLATELET COUNT 324 K/MM3 (134-434); RBC 4.44 M/mm3 (4.00-5.60); RDW 13.8 % (11.9-15.9); WHITE BLOOD COUNT 9.5 K/mm3 (4.0-10.0)
--- NOTE | 2017-11-01 09:51 | EKG ---
Test Reason : Blood Pressure : / mmHG Vent. Rate : 075 BPM Atrial Rate : 075 BPM P-R Int : 136 ms QRS Dur : 104 ms QT Int : 366 ms P-R-T Axes : 062 058 053 degrees QTc Int : 408 ms SINUS RHYTHM WITH MARKED SINUS ARRHYTHMIA POSSIBLE LEFT ATRIAL ENLARGEMENT BORDERLINE ECG WHEN COMPARED WITH ECG OF 22-DEC-2016 07:15, NO SIGNIFICANT CHANGE WAS FOUND Confirmed by MD Ayan, Kishore ([id number]) on 11/01/2017 9:51:12 AM Referred By: Confirmed By:Kishore Botello MD
[2017-11-01 09:54] LABS: CHLORIDE 99 mmol/L (98-107); POTASSIUM 3.7 mmol/L (3.5-5.1); SODIUM 136 mmol/L (136-145)
[2017-11-01] MEDS ORDERED: METHADONE HCL 10 MG TABLET (FOR DETOX USE ONLY) PO ONE (10:00)
[2017-11-01 10:15] LABS: ALBUMIN 4.5 g/dl (3.4-5.0); ALK PHOS 92 U/L (45-117); ANION GAP 8 (8-16); BILIRUBIN,TOTAL 0.7 mg/dL (0.2-1.0); BLOOD UREA NITROGEN 10 mg/dL (7-18); CALCIUM 9.8 mg/dL (8.5-10.1); CO2 29 mmol/L (21-32); CREATININE 0.7 mg/dL (0.7-1.3); GLUCOSE,RANDOM 109 mg/dL (74-106); SGPT/ALT 22 U/L (12-78); TOT PROT 8.3 g/dl (6.4-8.2)
[2017-11-01 10:16] LABS: SGOT/AST < 3 U/L (15-37)
--- NOTE | 2017-11-01 10:24 | PN ---
[facility] CIWA - CIWA Score Nausea/Vomitin Muscle Tremors: 4-Moderate,w/Arms Extend Anxiety: 3 Agitation: 3 Paroxysmal Sweats: 3 Orientation: 0-Oriented Tacttile Disturbances: 0-None Auditory Disturbances: 0-None Visual Disturbances: 0-None Headache: 1-Very Mild CIWA-Ar Total Score: 16 BHS COWS - Scale Resting Pulse: 0= [place] 80 or Below Sweatin=Flushed/Facial Moisture Restless Observation: 1= Difficult to Sit Still Pupil Size: 0= Normal to Room Light Bone or Joint Aches: 2= Severe Diffuse Aches Runny Nose/ Eye Tearin= Runny Nose/Eyes GI Upset > 30mins: 2= Nausea/Diarrhea Tremor Observation of Outstretched Hands: 2= Slight Tremor Visible Yawning Observation: 2= >3x During Session Anxiety or Irritability: 2=Irritable/Anxious Goose Flesh Skin: 0=Smooth Skin COWS Score: 15 S Progress Note (SOAP) Subjective: nausea vomiting sweats shakes chills body aches irritable Objective: 11/01/17 10:24 Vital Signs Temperature 96.8 F L 11/01/17 06:51 Pulse Rate 64 11/01/17 06:51 Respiratory Rate 16 11/01/17 06:51 Blood Pressure 94/50 11/01/17 06:51 O2 Sat by Pulse Oximetry (%) Laboratory Tests 10/31/17 11/01/17 11/01/17 15:45 06:00 06:00 WBC 9.5 RBC 4.44 Hgb 13.9 Hct 41.6 MCV 93.6 MCH 31.2 MCHC 33.4 RDW 13.8 Plt Count 324 D MPV 7.8 Sodium 136 Potassium 3.7 Chloride 99 Carbon Dioxide 29 Anion Gap 8 BUN 10 D Creatinine 0.7 Creat Clearance w eGFR > 60 Random Glucose 109 H Calcium 9.8 Total Bilirubin 0.7 D AST < 3 L D ALT 22 Alkaline Phosphatase 92 Total Protein 8.3 H Albumin 4.5 Urine Color Yellow Urine Appearance Turbid Urine pH 6.0 Ur Specific [place] 1.027 Urine Protein Negative Urine Glucose (UA) Negative Urine Ketones Trace H Urine Blood Negative Urine Nitrite Negative Urine Bilirubin Negative Urine Urobilinogen Negative aaox3 ambulating no acute distress Assessment: 11/01/17 10:25 withdrawal sx Plan: continue detox increase fluids methadone IM x one tigan IM x one
[2017-11-01] MEDS: CYCLOBENZAPRINE HCL 10 MG TABLET (FP) PO PRN ×2 (10:29→22:28)
[2017-11-01] MEDS: cloNIDine HCL 0.1 MG TABLET PO SCH ×2 (10:30→22:28)
[2017-11-01] MEDS: NICOTINE 21 MG/24 HOURS TOPICAL PATCH TD SCH (10:30)
[2017-11-01] MEDS: hydrOXYzine PAMOATE 25 MG CAPSULE (FP) PO PRN (10:30)
[2017-11-01] MEDS: PRENATAL VITAMINS W/ FOLIC ACID TABLET (FP) PO SCH (10:30)
[2017-11-01] MEDS: MAG HYDROX/AL HYDROX/SIMETH 30 ML UNIT-DOSE CUP PO PRN ×2 (11:42→22:29)
[2017-11-01] MEDS: TRIMETHOBENZAMIDE HCL 200MG/2ML INJ IM PRN (19:38)
[2017-11-01] MEDS: THIAMINE HCL 100 MG TABLET (FP) PO SCH (22:28)
[2017-11-02] MEDS: diazePAM 5 MG TABLET PO PRN ×4 (05:55→20:43)
[2017-11-02] MEDS: CYCLOBENZAPRINE HCL 10 MG TABLET (FP) PO PRN ×2 (05:56→22:09)
--- NOTE | 2017-11-02 09:15 | PN ---
[facility] CIWA - CIWA Score Nausea/Vomitin-No Nausea/No Vomiting Muscle Tremors: 4-Moderate,w/Arms Extend Anxiety: 3 Agitation: 3 Paroxysmal Sweats: 3 Orientation: 0-Oriented Tacttile Disturbances: 0-None Auditory Disturbances: 0-None Visual Disturbances: 0-None Headache: 0-None Present CIWA-Ar Total Score: 13 BHS COWS - Scale Resting Pulse: 0= [place] 80 or Below Sweatin= Chills/Flushing Restless Observation: 1= Difficult to Sit Still Pupil Size: 0= Normal to Room Light Bone or Joint Aches: 2= Severe Diffuse Aches Runny Nose/ Eye Tearin= Nasal Congestion GI Upset > 30mins: 2= Nausea/Diarrhea Tremor Observation of Outstretched Hands: 1= Tremor [place], Not Seen Yawning Observation: 1= 1-2x During Session Anxiety or Irritability: 2=Irritable/Anxious Goose Flesh Skin: 3=Piloerection COWS Score: 14 S Progress Note (SOAP) Subjective: shakes sweats interrupted sleep agitation body aches Objective: 11/02/17 09:10 Vital Signs Temperature 98.1 F 11/02/17 04:00 Pulse Rate 76 11/02/17 04:00 Respiratory Rate 18 11/02/17 04:00 Blood Pressure 114/66 11/02/17 04:00 O2 Sat by Pulse Oximetry (%) Laboratory Tests 10/31/17 11/01/17 11/01/17 15:45 06:00 06:00 WBC 9.5 RBC 4.44 Hgb 13.9 Hct 41.6 MCV 93.6 MCH 31.2 MCHC 33.4 RDW 13.8 Plt Count 324 D MPV 7.8 Sodium 136 Potassium 3.7 Chloride 99 Carbon Dioxide 29 Anion Gap 8 BUN 10 D Creatinine 0.7 Creat Clearance w eGFR > 60 Random Glucose 109 H Calcium 9.8 Total Bilirubin 0.7 D AST < 3 L D ALT 22 Alkaline Phosphatase 92 Total Protein 8.3 H Albumin 4.5 Urine Color Yellow Urine Appearance Turbid Urine pH 6.0 Ur Specific [place] 1.027 Urine Protein Negative Urine Glucose (UA) Negative Urine Ketones Trace H Urine Blood Negative Urine Nitrite Negative Urine Bilirubin Negative Urine Urobilinogen Negative Ur Leukocyte Esterase Negative RPR Titer 11/01/17 06:00 WBC RBC Hgb Hct MCV MCH MCHC RDW Plt Count MPV Sodium Potassium Chloride Carbon Dioxide Anion Gap BUN Creatinine Creat Clearance w eGFR Random Glucose Calcium Total Bilirubin AST ALT Alkaline Phosphatase Total Protein Albumin Urine Color Urine Appearance Urine pH Ur Specific [place] Urine Protein Urine Glucose (UA) Urine Ketones Urine Blood Urine Nitrite Urine Bilirubin Urine Urobilinogen Ur Leukocyte Esterase RPR Titer Nonreactive aaox3 ambulating no acute distress Assessment: 11/02/17 09:11 withdrawal sx Plan: continue detox increase fluids
[2017-11-02] MEDS ORDERED: METHADONE HCL 5 MG TABLET (FOR DETOX USE ONLY) PO ONE (10:00)
[2017-11-02] MEDS: cloNIDine HCL 0.1 MG TABLET PO SCH ×2 (10:30→22:09)
[2017-11-02] MEDS: PRENATAL VITAMINS W/ FOLIC ACID TABLET (FP) PO SCH (10:30)
[2017-11-02] MEDS: NICOTINE 21 MG/24 HOURS TOPICAL PATCH TD SCH (10:32)
[2017-11-02] MEDS: NICOTINE POLACRILEX 2 MG GUM BUC PRN (12:28)
[2017-11-02 15:56] LABS: URINE APPEARANCE SLCLOUDY; URINE BILIRUBIN NEGATIVE (NEGATIVE); URINE BLOOD NEGATIVE (NEGATIVE); URINE COLOR YELLOW; URINE GLUCOSE (UA) NEGATIVE (NEGATIVE); URINE KETONE NEGATIVE (NEGATIVE); URINE LEUK ESTERASE TRACE (NEGATIVE); URINE NITRITE NEGATIVE (NEGATIVE); URINE PROTEIN NEGATIVE (NEGATIVE); URINE UROBILINOGEN NEGATIVE mg/dL (0.2-1.0)
[2017-11-02] MEDS: THIAMINE HCL 100 MG TABLET (FP) PO SCH (22:09)
[2017-11-02] MEDS: hydrOXYzine PAMOATE 25 MG CAPSULE (FP) PO PRN (22:09)
--- NOTE | 2017-11-03 09:37 | PN ---
BHS Progress Note (SOAP) Subjective: nausea sweats anxiety Objective: 11/03/17 09:36 Vital Signs Temperature 97.7 F 11/03/17 06:00 Pulse Rate 69 11/03/17 06:00 Respiratory Rate 16 11/03/17 06:00 Blood Pressure 110/58 11/03/17 06:00 O2 Sat by Pulse Oximetry (%) Laboratory Tests 10/31/17 11/01/17 11/01/17 15:45 06:00 06:00 WBC 9.5 RBC 4.44 Hgb 13.9 Hct 41.6 MCV 93.6 MCH 31.2 MCHC 33.4 RDW 13.8 Plt Count 324 D MPV 7.8 Sodium 136 Potassium 3.7 Chloride 99 Carbon Dioxide 29 Anion Gap 8 BUN 10 D Creatinine 0.7 Creat Clearance w eGFR > 60 Random Glucose 109 H Calcium 9.8 Total Bilirubin 0.7 D AST < 3 L D ALT 22 Alkaline Phosphatase 92 Total Protein 8.3 H Albumin 4.5 Urine Color Yellow Urine Appearance Turbid Urine pH 6.0 Ur Specific [place] 1.027 Urine Protein Negative Urine Glucose (UA) Negative Urine Ketones Trace H Urine Blood Negative Urine Nitrite Negative Urine Bilirubin Negative Urine Urobilinogen Negative Ur Leukocyte Esterase Negative RPR Titer 11/01/17 11/02/17 06:00 11:45 WBC RBC Hgb Hct MCV MCH MCHC RDW Plt Count MPV Sodium Potassium Chloride Carbon Dioxide Anion Gap BUN Creatinine Creat Clearance w eGFR Random Glucose Calcium Total Bilirubin AST ALT Alkaline Phosphatase Total Protein Albumin Urine Color Yellow Urine Appearance Slcloudy Urine pH 6.0 Ur Specific [place] 1.021 Urine Protein Negative Urine Glucose (UA) Negative Urine Ketones Negative Urine Blood Negative Urine Nitrite Negative Urine Bilirubin Negative Urine Urobilinogen Negative Ur Leukocyte Esterase RPR Titer Nonreactive aaox3 ambulating no acute distress Assessment: 11/03/17 09:36 withdrawal sx Plan: continue detox increase fluids tigan IM prn
[2017-11-03] MEDS: TRIMETHOBENZAMIDE HCL 200MG/2ML INJ IM PRN ×2 (09:40→17:22)
[2017-11-03] MEDS ORDERED: METHADONE HCL 5 MG TABLET (FOR DETOX USE ONLY) PO ONE (10:00)
[2017-11-03] MEDS: cloNIDine HCL 0.1 MG TABLET PO SCH ×2 (10:40→22:17)
[2017-11-03] MEDS: PRENATAL VITAMINS W/ FOLIC ACID TABLET (FP) PO SCH (10:42)
[2017-11-03] MEDS: NICOTINE 21 MG/24 HOURS TOPICAL PATCH TD SCH (10:42)
[2017-11-03] MEDS: diazePAM 5 MG TABLET PO PRN (10:44)
[2017-11-03] MEDS: MAG HYDROX/AL HYDROX/SIMETH 30 ML UNIT-DOSE CUP PO PRN (10:55)
[2017-11-03] MEDS ORDERED: RANITIDINE HCL 150 MG TABLET (FP) PO ONE (12:36)
[2017-11-03] MEDS ORDERED: cloNIDine HCL 0.1 MG TABLET PO ONE (12:40)
[2017-11-03] MEDS: hydrOXYzine PAMOATE 25 MG CAPSULE (FP) PO PRN ×3 (13:42→22:17)
[2017-11-03] MEDS: METOCLOPRAMIDE HCL 10 MG TABLET (FP) PO SCH ×2 (16:54→22:17)
[2017-11-03] MEDS: IBUPROFEN 400 MG TABLET (FP) PO PRN (18:43)
[2017-11-03] MEDS: CYCLOBENZAPRINE HCL 10 MG TABLET (FP) PO PRN (18:43)
[2017-11-03] MEDS: THIAMINE HCL 100 MG TABLET (FP) PO SCH (22:17)
[2017-11-03] MEDS: RANITIDINE HCL 150 MG TABLET (FP) PO SCH (22:17)
[2017-11-04] MEDS: METOCLOPRAMIDE HCL 10 MG TABLET (FP) PO SCH ×4 (06:50→22:10)
[2017-11-04] MEDS ORDERED: METHADONE HCL 10 MG TABLET (FOR DETOX USE ONLY) PO ONE (10:00)
[2017-11-04] MEDS: PRENATAL VITAMINS W/ FOLIC ACID TABLET (FP) PO SCH (10:03)
[2017-11-04] MEDS: cloNIDine HCL 0.1 MG TABLET PO SCH ×2 (10:03→22:10)
[2017-11-04] MEDS: RANITIDINE HCL 150 MG TABLET (FP) PO SCH ×2 (10:03→22:10)
[2017-11-04] MEDS: NICOTINE 21 MG/24 HOURS TOPICAL PATCH TD SCH (10:04)
[2017-11-04] MEDS: CYCLOBENZAPRINE HCL 10 MG TABLET (FP) PO PRN ×2 (10:07→22:10)
--- NOTE | 2017-11-04 11:19 | PN ---
BHS Progress Note (SOAP) Subjective: ALERT,IRRITABLE,ANXIOUS,INTERRUPTED SLEEP Objective: 11/04/17 11:18 Vital Signs Temperature 97.7 F 11/04/17 10:15 Pulse Rate 93 H 11/04/17 10:15 Respiratory Rate 18 11/04/17 10:15 Blood Pressure 145/93 11/04/17 10:15 O2 Sat by Pulse Oximetry (%) Assessment: 11/04/17 11:18 WITHDRAWAL SYMPTOM Plan: CONTINUE DETOX,DISCHARGE IN AM
[2017-11-04] MEDS: hydrOXYzine PAMOATE 25 MG CAPSULE (FP) PO PRN ×3 (14:46→22:09)
[2017-11-04] MEDS: IBUPROFEN 400 MG TABLET (FP) PO PRN (14:46)
[2017-11-04] MEDS: NICOTINE POLACRILEX 2 MG GUM BUC PRN (17:26)
[2017-11-04] MEDS: THIAMINE HCL 100 MG TABLET (FP) PO SCH (22:09)
[2017-11-05] MEDS: hydrOXYzine PAMOATE 25 MG CAPSULE (FP) PO PRN (05:41)
[2017-11-05] MEDS ORDERED: METHADONE HCL 5 MG TABLET (FOR DETOX USE ONLY) PO ONE (06:00)
[2017-11-05] MEDS: METOCLOPRAMIDE HCL 10 MG TABLET (FP) PO SCH (07:00)
[2017-11-05] MEDS: NICOTINE 21 MG/24 HOURS TOPICAL PATCH TD SCH (09:34)
[2017-11-05] MEDS: RANITIDINE HCL 150 MG TABLET (FP) PO SCH (09:36)
[2017-11-05] MEDS: PRENATAL VITAMINS W/ FOLIC ACID TABLET (FP) PO SCH (09:36)
[2017-11-05] MEDS: CYCLOBENZAPRINE HCL 10 MG TABLET (FP) PO PRN (09:36)
[2017-11-05] MEDS: cloNIDine HCL 0.1 MG TABLET PO SCH (09:36)
[2017-11-05 11:10] VITALS: BP 119/62; PULSE 71; TEMP 97.5
--- NOTE | 2017-11-05 11:49 | DS ---
[facility] Detox Discharge Summary Admission Date: 10/31/17 Discharge Date: 11/05/17 - History Present History: Opioid Dependence - Physical Exam Results Vital Signs: Vital Signs Temperature 97.5 F L 11/05/17 10:00 Pulse Rate 71 11/05/17 10:00 Respiratory Rate 18 11/05/17 10:00 Blood Pressure 119/62 11/05/17 10:00 O2 Sat by Pulse Oximetry (%) Pertinent Admission Physical Exam Findings: withdrawal sx Vital Signs Temperature 97.5 F L 11/05/17 10:00 Pulse Rate 71 11/05/17 10:00 Respiratory Rate 18 11/05/17 10:00 Blood Pressure 119/62 11/05/17 10:00 O2 Sat by Pulse Oximetry (%) Laboratory Last Values WBC 9.5 K/mm3 (4.0-10.0) 11/01/17 06:00 RBC 4.44 M/mm3 (4.00-5.60) 11/01/17 06:00 Hgb 13.9 GM/dL (11.7-16.9) 11/01/17 06:00 Hct 41.6 % (35.4-49) 11/01/17 06:00 MCV 93.6 fl (80-96) 11/01/17 06:00 MCH 31.2 pg (25.7-33.7) 11/01/17 06:00 MCHC 33.4 g/dl (32.0-35.9) 11/01/17 06:00 RDW 13.8 % (11.9-15.9) 11/01/17 06:00 Plt Count 324 K/MM3 (134-434) D 11/01/17 06:00 MPV 7.8 fl (7.5-11.1) 11/01/17 06:00 Sodium 136 mmol/L (136-145) 11/01/17 06:00 Potassium 3.7 mmol/L (3.5-5.1) 11/01/17 06:00 Chloride 99 mmol/L (98-107) 11/01/17 06:00 Carbon Dioxide 29 mmol/L (21-32) 11/01/17 06:00 Anion Gap 8 (8-16) 11/01/17 06:00 BUN 10 mg/dL (7-18) D 11/01/17 06:00 Creatinine 0.7 mg/dL (0.7-1.3) 11/01/17 06:00 Creat Clearance w eGFR > 60 (>60) 11/01/17 06:00 Random Glucose 109 mg/dL (74-106) H 11/01/17 06:00 Calcium 9.8 mg/dL (8.5-10.1) 11/01/17 06:00 Total Bilirubin 0.7 mg/dL (0.2-1.0) D 11/01/17 06:00 AST < 3 U/L (15-37) L D 11/01/17 06:00 ALT 22 U/L (12-78) 11/01/17 06:00 Alkaline Phosphatase 92 U/L (45-117) 11/01/17 06:00 Total Protein 8.3 g/dl (6.4-8.2) H 11/01/17 06:00 Albumin 4.5 g/dl (3.4-5.0) 11/01/17 06:00 Urine Color Yellow 11/02/17 11:45 Urine Appearance Slcloudy 11/02/17 11:45 Urine pH 6.0 (5.0-8.0) 11/02/17 11:45 Ur Specific [place] 1.021 (1.001-1.035) 11/02/17 11:45 Urine Protein Negative (NEGATIVE) 11/02/17 11:45 Urine Glucose (UA) Negative (NEGATIVE) 11/02/17 11:45 Urine Ketones Negative (NEGATIVE) 11/02/17 11:45 Urine Blood Negative (NEGATIVE) 11/02/17 11:45 Urine Nitrite Negative (NEGATIVE) 11/02/17 11:45 Urine Bilirubin Negative (NEGATIVE) 11/02/17 11:45 Urine Urobilinogen Negative mg/dL (0.2-1.0) 11/02/17 11:45 Ur Leukocyte Esterase Negative (NEGATIVE) 10/31/17 15:45 RPR Titer Nonreactive (NONREACTIVE) 11/01/17 06:00 lab noted - Treatment Hospital Course: Detox Protocol Followed, Detoxed Safely, Responded well, Discharged Condition Good, Rehab Referral Accepted - Medication Discharge Medications: Ambulatory Orders NK [No Known Home Medication] 12/21/16 - Diagnosis (1) Weight loss Status: Acute (2) Nicotine dependence Status: Acute Qualifiers: Nicotine product type: cigarettes Substance use status: in withdrawal Qualified Code(s): F17.213 - Nicotine dependence, cigarettes, with withdrawal (3) Opioid dependence with withdrawal Status: Acute - AMA Did Patient Leave Against Medical Advice: No
== END 2017-11-05 10:10 | disposition home or self-care (01) | DRG 773 ==
LOC: YASAS 10:08 → Y6N 11:57
PROVIDERS: ADMIT Internal Medicine; ATTEND Internal Medicine
PROC: HZ2ZZZZ Detoxification Services for Substance Abuse Treatment (ICD-10-PCS; principal; 2017-10-31)
DX: F11.23 Opioid dependence with withdrawal (principal); F13.230 Sedative, hypnotic or anxiolytic dependence with withdrawal, uncomplicated; F12.20 Cannabis dependence, uncomplicated; F17.213 Nicotine dependence, cigarettes, with withdrawal; F32.9 Major depressive disorder, single episode, unspecified; R63.4 Abnormal weight loss; Z68.22 Body mass index [BMI] 22.0-22.9, adult
CPT/HCPCS: 36415; 80053; 81003; 81015; 85027; 86593; 93005; 93010

== ENCOUNTER 2017-11-27 10:16 | Inpatient (IN) | payer OTHER ==
[2017-11-27 10:31] VITALS: BMI 24.0
--- NOTE | 2017-11-27 13:14 | HP ---
COWS - Scale Resting Pulse: 1= [place] 81-100 Sweatin= Chills/Flushing Restless Observation: 3= Extraneous Movement Pupil Size: 2= Moderately Dilated Bone or Joint Aches: 4=Acute Joint/Muscle Pain Runny Nose/ Eye Tearin= Runny Nose/Eyes GI Upset > 30mins: 2= Nausea/Diarrhea (NAUSEA) Tremor Observation: 2= Slight Tremor Visible Yawning Observation: 1= 1-2x During Session Anxiety or Irritability: 2=Irritable/Anxious Goose Flesh Skin: 0=Smooth Skin COWS Score: 20 Admission ROS S - HPI Chief Complaint: WITHDARWAL SX FROM HEROIN Allergies/Adverse Reactions: Allergies Allergy/AdvReac Type Severity Reaction Status Date / Time Fish Containing Products Allergy Severe Hives Verified 11/27/17 10:45 No Known Drug Allergies Allergy Verified 11/27/17 10:45 History of Present Illness: 22 Y/O [place] MALE WITH A HX OF HEROIN DEPENDENCE SEEKING DETOX TX. PT REPORTS USE OF XANAX ON A SPRADIC BASIS,COCAINE AND MARIJUANA. Exam Limitations: No Limitations - Ebola screening Have you traveled outside of the country in the last 21 days: No Have you had contact with anyone from an Ebola affected area: No Have you been sick,other than usual withdrawal symptoms: No Do you have a fever: No - Review of Systems Constitutional: Chills, Loss of Appetite, Night Sweats, Changes in sleep, Unintentional Wgt. Loss EENT: reports: Tearing, Nose Congestion, Dental Problems (EXTRACTED TOP LEFT WISDOM TOOTH) Respiratory: reports: No Symptoms reported Cardiac: reports: Lightheadedness GI: reports: Constipated, Diarrhea, Nausea, Poor Appetite, Poor Fluid Intake, Vomiting, Abdominal cramping : reports: Dysuria (DUE TO HEROIN USE) Musculoskeletal: reports: Back Pain, Joint Pain, Muscle Weakness Integumentary: reports: Bruising (ON BOTH ELBOWS) Neuro: reports: Headache, Numbness, Tingling, Tremors, Unsteady Gait, Dizziness Endocrine: reports: No Symptoms Reported Hematology: reports: Anemia (BORDERLINE--NEVER TREATED) Psychiatric: reports: Orientated x3, Anxious Other Systems: Reviewed and Negative Patient History - Patient Medical History Hx Anemia: No Hx Asthma: No Hx Chronic Obstructive Pulmonary Disease (COPD): No Hx Cancer: No Hx Cardiac Disorders: No Hx Congestive Heart Failure: No Hx Hypertension: No Hx Hypercholesterolemia: No Hx Pacemaker: No HX Cerebrovascular Accident: No Hx Seizures: No Hx Dementia: No Hx Diabetes: No Hx Gastrointestinal Disorders: Yes (ACID REFLUX- ZANTAC/TUMS IN THE PAST) Hx Liver Disease: No Hx Genitourinary Disorders: No Hx Sexually Transmitted Disorders: No Hx Renal Disease (ESRD): No Hx Thyroid Disease: No Hx Human Immunodeficiency Virus (HIV): No (NEGATIVE HX) Hx Hepatitis C: No Hx Depression: No Hx Suicide Attempt: No (DENIES) Hx Bipolar Disorder: No Hx Schizophrenia: No - Patient Surgical History Past Surgical History: No Hx Neurologic Surgery: No Hx Cataract Extraction: No Hx Cardiac Surgery: No Hx Lung Surgery: No Hx Breast Surgery: No Hx Breast Biopsy: No Hx Abdominal Surgery: No Hx Appendectomy: No Hx Cholecystectomy: No Hx Genitourinary Surgery: No Hx Orthopedic Surgery: No Anesthesia Reaction: No - PPD History Previous Implant?: Yes Documented Results: Negative w/proof Implanted On Prior [facility] Admission?: Yes Date: 12/23/16 Results: 0MM PPD to be Administered?: No - Reproductive History Patient is a Female of Child Bearing Age (11 -55 yrs old): No (MALE) Patient : No - Smoking Cessation Smoking history: Current every day smoker Have you smoked in the past 12 months: Yes Aproximately how many cigarettes per day: 10 Hx Chewing Tobacco Use: No Initiated information on smoking cessation: Yes 'Breaking Loose' booklet given: 11/27/17 - Substance & Tx. History Hx Alcohol Use: No Hx Substance Use: Yes (HEROIN/COCAINE/XANAX/MARIJUANA) Substance Use Type: Cocaine, Heroin, Marijuana, Tranquilizers Hx Substance Use Treatment: Yes (LAST TX AT [facility]) - Substances Abused Heroin Route: Injection Frequency: Daily Amount used: BAGS Age of first use: 20 Date of Last Use: 11/27/17 Marijuana/Hashish Route: Smoking Frequency: Daily Amount used: 1 GM Age of first use: 13 Date of Last Use: 11/26/17 Cocaine Route: Smoking Frequency: 1-3 times last 30 days Amount used: $50 Age of first use: 20 Date of Last Use: 10/18/17 Alprazolam (Xanax) Route: Oral Frequency: 1-3 times last 30 days Amount used: 0.25MG(FOOTBALL) Age of first use: 13 Date of Last Use: 11/20/17 Family Disease History - Family Disease History Family Disease History: Diabetes: Grandparent (GM-ALIVE) Admission Physical Exam [facility] - Vital Signs Vital Signs: Vital Signs - 24 hr 11/27/17 10:24 Temperature 97.5 F L Pulse Rate 95 H Respiratory 18 Rate Blood Pressure 138/77 - Physical General Appearance: Yes: Moderate Distress, Irritable, Anxious HEENTM: Yes: EOMI, Normocephalic, KAI, Pharynx Normal Respiratory: Yes: Chest Non-Tender, Lungs Clear, Normal Breath Sounds, No Respiratory Distress Neck: Yes: No masses,lesions,Nodules, Supple, Trachea in good position Breast: Yes: Breast Exam Deferred Cardiology: Yes: Regular Rhythm, Regular Rate, S1, S2 Abdominal: Yes: Normal Bowel Sounds, Non Tender, Flat, Soft Genitourinary: Yes: Other (N/C) Back: Yes: Within Normal Limits Musculoskeletal: Yes: full range of Motion, Gait Steady Extremities: Yes: Normal Range of Motion, Non-Tender 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 intact, Fully Oriented, Alert Integumentary: Yes: Dry, Warm, Track [place] Lymphatic: Yes: Within Normal Limits - Diagnostic (1) Nicotine dependence Current Visit: Yes Status: Acute Qualifiers: Nicotine product type: cigarettes Substance use status: in withdrawal Qualified Code(s): F17.213 - Nicotine dependence, cigarettes, with withdrawal (2) Opioid dependence with withdrawal Current Visit: Yes Status: Acute (3) Weight loss Current Visit: Yes Status: Acute (4) Cannabis dependence, uncomplicated Current Visit: Yes Status: Acute (5) Cocaine dependence, uncomplicated Current Visit: Yes Status: Acute (6) GERD (gastroesophageal reflux disease) Current Visit: Yes Status: Suspected Cleared for Admission [facility] - Detox or Rehab [facility] Level of Care: Medically Managed Detox Regimen/Protocol: Methadone [facility] Breath Alcohol Content Breath Alcohol Content: 0 Urine Drug Screen - Results Drug Screen Negative: No Urine Drug Screen Results: THC-Marijuana, DARYA-Cocaine, OPI-Opiates, BZO- Benzodiazepines, OXY-Oxycodone
[2017-11-27] MEDS ORDERED: MENTHOL/PHENOL 1 EACH UD MM PRN (13:32)
[2017-11-27] MEDS ORDERED: IBUPROFEN 400 MG TABLET (FP) PO PRN (13:32)
[2017-11-27] MEDS ORDERED: P-EPHED 60MG/TRIPROLIDI 2.5MG TABLET PO PRN (13:32)
[2017-11-27] MEDS ORDERED: guaiFENesin/D-METHORPHAN HB 10 ML UNIT-DOSE CUPS PO PRN (13:32)
[2017-11-27] MEDS ORDERED: MAGNESIUM CITRATE 300 ML BOTTLE PO PRN (13:32)
[2017-11-27] MEDS ORDERED: ACETAMINOPHEN 325 MG TABLET (FP) PO PRN (13:32)
[2017-11-27] MEDS ORDERED: MAGNESIUM HYDROX 2400MG/30ML ORAL SUSPENSION 30 ML CUP PO PRN (13:32)
[2017-11-27] MEDS ORDERED: LOPERAMIDE HCL 2 MG CAPSULE PO PRN (13:32)
[2017-11-27] MEDS ORDERED: METHADONE HCL 10 MG TABLET (FOR DETOX USE ONLY) PO ONE ×2 (14:35→23:00)
[2017-11-27] MEDS: diazePAM 5 MG TABLET PO PRN ×3 (15:05→23:29)
[2017-11-27] MEDS: NICOTINE 14 MG/24 HOURS TOPICAL PATCH TD SCH (15:06)
[2017-11-27] MEDS: ONDANSETRON *ODT* 4 MG TABLET SL PRN ×2 (15:06→22:29)
[2017-11-27 17:06] LABS: URINE APPEARANCE CLEAR; URINE BILIRUBIN NEGATIVE (NEGATIVE); URINE BLOOD NEGATIVE (NEGATIVE); URINE COLOR DKYELLOW; URINE GLUCOSE (UA) NEGATIVE (NEGATIVE); URINE KETONE NEGATIVE (NEGATIVE); URINE LEUK ESTERASE NEGATIVE (NEGATIVE); URINE NITRITE NEGATIVE (NEGATIVE); URINE PROTEIN NEGATIVE (NEGATIVE)
[2017-11-27 17:09] LABS: HEMATOCRIT 38.4 % (35.4-49); HEMOGLOBIN 13.1 GM/dL (11.7-16.9); MCH 31.8 pg (25.7-33.7); MCHC 34.1 g/dl (32.0-35.9); MEAN CELL VOLUME 93.2 fl (80-96); MEAN PLT VOLUME 7.1 fl (7.5-11.1); PLATELET COUNT 270 K/MM3 (134-434); RBC 4.12 M/mm3 (4.00-5.60); RDW 13.6 % (11.9-15.9)
[2017-11-27] MEDS: THIAMINE HCL 100 MG TABLET (FP) PO SCH (22:28)
[2017-11-27] MEDS: cloNIDine HCL 0.1 MG TABLET PO SCH (22:28)
[2017-11-27 23:48] LABS: ALBUMIN 4.1 g/dl (3.4-5.0); ANION GAP 9 (8-16); BILIRUBIN,TOTAL 0.4 mg/dL (0.2-1.0); BLOOD UREA NITROGEN 14 mg/dL (7-18); CALCIUM 9.4 mg/dL (8.5-10.1); CHLORIDE 102 mmol/L (98-107); CO2 30 mmol/L (21-32); CREATININE 0.9 mg/dL (0.7-1.3); GLUCOSE,RANDOM 109 mg/dL (74-106); POTASSIUM 4.2 mmol/L (3.5-5.1); SGOT/AST 8 U/L (15-37); SGPT/ALT 37 U/L (12-78); SODIUM 141 mmol/L (136-145); TOT PROT 7.9 g/dl (6.4-8.2)
[2017-11-27 23:49] LABS: ALK PHOS 93 U/L (45-117)
[2017-11-28] MEDS: diazePAM 5 MG TABLET PO PRN ×4 (05:10→20:05)
[2017-11-28] MEDS ORDERED: METHADONE HCL 10 MG TABLET (FOR DETOX USE ONLY) PO ONE (10:00)
[2017-11-28] MEDS: cloNIDine HCL 0.1 MG TABLET PO SCH ×2 (10:48→22:29)
[2017-11-28] MEDS: PRENATAL VITAMINS W/ FOLIC ACID TABLET (FP) PO SCH (10:48)
[2017-11-28] MEDS: NICOTINE 14 MG/24 HOURS TOPICAL PATCH TD SCH (10:48)
--- NOTE | 2017-11-28 11:33 | PN ---
S COWS - Scale Resting Pulse: 0= [place] 80 or Below Sweatin= Chills/Flushing Restless Observation: 1= Difficult to Sit Still Pupil Size: 0= Normal to Room Light Bone or Joint Aches: 2= Severe Diffuse Aches Runny Nose/ Eye Tearin= None GI Upset > 30mins: 2= Nausea/Diarrhea Tremor Observation of Outstretched Hands: 0= None Yawning Observation: 1= 1-2x During Session Anxiety or Irritability: 4=Extreme Anxiety Goose Flesh Skin: 3=Piloerection COWS Score: 14 S Progress Note (SOAP) Subjective: Nausea, Anxious, Agitated, Body Aches. Objective: PT. A & O X 2 (UNCERTAIN ABOUT CURRENT DAY / DATE). PT. OBSERVED AMBULATING ON UNIT. NO ACUTE DISTRESS. 11/28/17 11:29 Vital Signs Temperature 97.7 F 11/28/17 10:40 Pulse Rate 58 L 11/28/17 10:40 Respiratory Rate 16 11/28/17 10:40 Blood Pressure 120/67 11/28/17 10:40 O2 Sat by Pulse Oximetry (%) Laboratory Tests 11/27/17 11/27/17 11/27/17 13:00 13:00 13:00 WBC 5.0 D RBC 4.12 Hgb 13.1 Hct 38.4 MCV 93.2 MCH 31.8 MCHC 34.1 RDW 13.6 Plt Count 270 MPV 7.1 L Sodium 141 Potassium 4.2 Chloride 102 Carbon Dioxide 30 Anion Gap 9 BUN 14 D Creatinine 0.9 D Creat Clearance w eGFR > 60 Random Glucose 109 H Calcium 9.4 Total Bilirubin 0.4 D AST 8 L D ALT 37 D Alkaline Phosphatase 93 Total Protein 7.9 Albumin 4.1 Urine Color Urine Appearance Urine pH Ur Specific [place] Urine Protein Urine Glucose (UA) Urine Ketones Urine Blood Urine Nitrite Urine Bilirubin Urine Urobilinogen Ur Leukocyte Esterase RPR Titer Nonreactive 11/27/17 15:00 WBC RBC Hgb Hct MCV MCH MCHC RDW Plt Count MPV Sodium Potassium Chloride Carbon Dioxide Anion Gap BUN Creatinine Creat Clearance w eGFR Random Glucose Calcium Total Bilirubin AST ALT Alkaline Phosphatase Total Protein Albumin Urine Color Dkyellow Urine Appearance Clear Urine pH 5.0 Ur Specific [place] 1.027 Urine Protein Negative Urine Glucose (UA) Negative Urine Ketones Negative Urine Blood Negative Urine Nitrite Negative Urine Bilirubin Negative Urine Urobilinogen 2.0 Ur Leukocyte Esterase Negative RPR Titer LABS NOTED. Assessment: 11/28/17 11:31 WITHDRAWAL SYMPTOMS. Plan: CONTINUE DETOX. PRN ZOFRAN FOR NAUSEA. PRN FLEXERIL FOR BODY ACHES / MUSCLE SPASMS.
[2017-11-28] MEDS: NICOTINE POLACRILEX 2 MG GUM BUC PRN ×2 (13:21→22:58)
[2017-11-28] MEDS: CYCLOBENZAPRINE HCL 10 MG TABLET (FP) PO PRN (13:22)
--- NOTE | 2017-11-28 14:10 | EKG ---
Test Reason : Blood Pressure : / mmHG Vent. Rate : 086 BPM Atrial Rate : 086 BPM P-R Int : 156 ms QRS Dur : 088 ms QT Int : 350 ms P-R-T Axes : 048 047 026 degrees QTc Int : 418 ms NORMAL SINUS RHYTHM NORMAL ECG WHEN COMPARED WITH ECG OF 31-OCT-2017 13:12, NO SIGNIFICANT CHANGE WAS FOUND Confirmed by MD Botello Edward ([id number]) on 11/28/2017 2:10:09 PM Referred By: Confirmed By:Kishore Botello MD
[2017-11-28] MEDS: MAG HYDROX/AL HYDROX/SIMETH 30 ML UNIT-DOSE CUP PO PRN (14:54)
[2017-11-28] MEDS: THIAMINE HCL 100 MG TABLET (FP) PO SCH (22:29)
[2017-11-28] MEDS: hydrOXYzine PAMOATE 50 MG CAPSULE (FP) PO PRN (22:31)
[2017-11-29] MEDS: diazePAM 5 MG TABLET PO PRN ×6 (01:07→22:46)
[2017-11-29] MEDS: CYCLOBENZAPRINE HCL 10 MG TABLET (FP) PO PRN ×3 (05:24→22:31)
[2017-11-29] MEDS ORDERED: METHADONE HCL 5 MG TABLET (FOR DETOX USE ONLY) PO ONE (10:00)
[2017-11-29] MEDS: cloNIDine HCL 0.1 MG TABLET PO SCH ×2 (10:39→22:31)
[2017-11-29] MEDS: PRENATAL VITAMINS W/ FOLIC ACID TABLET (FP) PO SCH (10:39)
[2017-11-29] MEDS: NICOTINE 14 MG/24 HOURS TOPICAL PATCH TD SCH (10:41)
[2017-11-29] MEDS: NICOTINE POLACRILEX 2 MG GUM BUC PRN ×3 (10:41→23:23)
--- NOTE | 2017-11-29 14:35 | PN ---
BHS COWS - Scale Resting Pulse: 0= [place] 80 or Below Sweatin=Flushed/Facial Moisture Restless Observation: 1= Difficult to Sit Still Pupil Size: 0= Normal to Room Light Bone or Joint Aches: 2= Severe Diffuse Aches Runny Nose/ Eye Tearin= None GI Upset > 30mins: 0= None Tremor Observation of Outstretched Hands: 2= Slight Tremor Visible Yawning Observation: 2= >3x During Session Anxiety or Irritability: 4=Extreme Anxiety Goose Flesh Skin: 3=Piloerection COWS Score: 16 BHS Progress Note (SOAP) Subjective: Anxious, Sweating, Interrupted Sleep, Tremors, Fatigue, Body Aches. Objective: PT. A & O X 3, OBSERVED AMBULATING ON UNIT. NO ACUTE DISTRESS. 11/29/17 14:33 Vital Signs Temperature 97.1 F L 11/29/17 13:32 Pulse Rate 71 11/29/17 13:32 Respiratory Rate 18 11/29/17 13:32 Blood Pressure 114/72 11/29/17 13:32 O2 Sat by Pulse Oximetry (%) Laboratory Tests 11/27/17 11/27/17 11/27/17 13:00 13:00 13:00 WBC 5.0 D RBC 4.12 Hgb 13.1 Hct 38.4 MCV 93.2 MCH 31.8 MCHC 34.1 RDW 13.6 Plt Count 270 MPV 7.1 L Sodium 141 Potassium 4.2 Chloride 102 Carbon Dioxide 30 Anion Gap 9 BUN 14 D Creatinine 0.9 D Creat Clearance w eGFR > 60 Random Glucose 109 H Calcium 9.4 Total Bilirubin 0.4 D AST 8 L D ALT 37 D Alkaline Phosphatase 93 Total Protein 7.9 Albumin 4.1 Urine Color Urine Appearance Urine pH Ur Specific [place] Urine Protein Urine Glucose (UA) Urine Ketones Urine Blood Urine Nitrite Urine Bilirubin Urine Urobilinogen Ur Leukocyte Esterase RPR Titer Nonreactive 11/27/17 15:00 WBC RBC Hgb Hct MCV MCH MCHC RDW Plt Count MPV Sodium Potassium Chloride Carbon Dioxide Anion Gap BUN Creatinine Creat Clearance w eGFR Random Glucose Calcium Total Bilirubin AST ALT Alkaline Phosphatase Total Protein Albumin Urine Color Dkyellow Urine Appearance Clear Urine pH 5.0 Ur Specific [place] 1.027 Urine Protein Negative Urine Glucose (UA) Negative Urine Ketones Negative Urine Blood Negative Urine Nitrite Negative Urine Bilirubin Negative Urine Urobilinogen 2.0 Ur Leukocyte Esterase Negative RPR Titer LABS NOTED. Assessment: 11/29/17 14:34 WITHDRAWAL SYMPTOMS. Plan: CONTINUE DETOX. INCREASE DAILY PO FLUID INTAKE.
[2017-11-29] MEDS: THIAMINE HCL 100 MG TABLET (FP) PO SCH (22:31)
[2017-11-30] MEDS: diazePAM 5 MG TABLET PO PRN ×3 (03:32→12:31)
[2017-11-30] MEDS ORDERED: METHADONE HCL 5 MG TABLET (FOR DETOX USE ONLY) PO ONE (10:00)
[2017-11-30] MEDS ORDERED: METHADONE HCL 10 MG TABLET (FOR DETOX USE ONLY) PO ONE (10:00)
[2017-11-30] MEDS: cloNIDine HCL 0.1 MG TABLET PO SCH ×2 (10:31→22:30)
[2017-11-30] MEDS: PRENATAL VITAMINS W/ FOLIC ACID TABLET (FP) PO SCH (10:31)
[2017-11-30] MEDS: NICOTINE 14 MG/24 HOURS TOPICAL PATCH TD SCH (10:31)
[2017-11-30] MEDS: CYCLOBENZAPRINE HCL 10 MG TABLET (FP) PO PRN ×2 (10:31→22:32)
--- NOTE | 2017-11-30 12:25 | PN ---
S Progress Note (SOAP) Subjective: Sweating, Nausea, Anxious, Diarrhea. Objective: PT. A & O X 3, OBSERVED AMBULATING ON UNIT. NO ACUTE DISTRESS. 11/30/17 12:20 Vital Signs Temperature 97.2 F L 11/30/17 11:10 Pulse Rate 62 11/30/17 11:10 Respiratory Rate 18 11/30/17 11:10 Blood Pressure 106/72 11/30/17 11:10 O2 Sat by Pulse Oximetry (%) Laboratory Tests 11/27/17 11/27/17 11/27/17 13:00 13:00 13:00 WBC 5.0 D RBC 4.12 Hgb 13.1 Hct 38.4 MCV 93.2 MCH 31.8 MCHC 34.1 RDW 13.6 Plt Count 270 MPV 7.1 L Sodium 141 Potassium 4.2 Chloride 102 Carbon Dioxide 30 Anion Gap 9 BUN 14 D Creatinine 0.9 D Creat Clearance w eGFR > 60 Random Glucose 109 H Calcium 9.4 Total Bilirubin 0.4 D AST 8 L D ALT 37 D Alkaline Phosphatase 93 Total Protein 7.9 Albumin 4.1 Urine Color Urine Appearance Urine pH Ur Specific [place] Urine Protein Urine Glucose (UA) Urine Ketones Urine Blood Urine Nitrite Urine Bilirubin Urine Urobilinogen Ur Leukocyte Esterase RPR Titer Nonreactive 11/27/17 15:00 WBC RBC Hgb Hct MCV MCH MCHC RDW Plt Count MPV Sodium Potassium Chloride Carbon Dioxide Anion Gap BUN Creatinine Creat Clearance w eGFR Random Glucose Calcium Total Bilirubin AST ALT Alkaline Phosphatase Total Protein Albumin Urine Color Dkyellow Urine Appearance Clear Urine pH 5.0 Ur Specific [place] 1.027 Urine Protein Negative Urine Glucose (UA) Negative Urine Ketones Negative Urine Blood Negative Urine Nitrite Negative Urine Bilirubin Negative Urine Urobilinogen 2.0 Ur Leukocyte Esterase Negative RPR Titer LABS NOTED. Assessment: 11/30/17 12:21 WITHDRAWAL SYMPTOMS. Plan: CONTINUE DETOX. INCREASE DAILY PO FLUID INTAKE. WITH APPROVAL AND AGREEMENT OF PATIENT, COUNSELOR HAS BED SCHEDULED FOR PATIENT AT [facility] ([place] FOR TOMORROW, 12/01/2017 ([facility] WILL NOT ADMIT PATIENT ON ORIGINAL DISCHARGE DATE, 12/02/2017). AT PATIENT'S REQUEST, DETOX MEDICATION REGIMEN (METHADONE) MODIFIED SO THAT PATIENT MAY BE DISCHARGED TOMORROW, 12/01/2017, AT WHICH TIME HE WILL BE TAKEN TO [facility] FOR REHAB ADMISSION.
[2017-11-30] MEDS: NICOTINE POLACRILEX 2 MG GUM BUC PRN (12:57)
[2017-11-30] MEDS: MAG HYDROX/AL HYDROX/SIMETH 30 ML UNIT-DOSE CUP PO PRN (12:57)
--- NOTE | 2017-11-30 13:33 | PN ---
[facility] Progress Note Note: Patient reports that he accidentally hit the third and fourth toes of his Left foot on corner edge of door to his room while opening door. Patient states that he did not fall to floor after hitting his foot. Patient reports mild discomfort in third and fourth toes of Left foot. Erythema noted on visual inspection of third and fourth toes of Left foot. No swelling, bleeding, or wounds noted at affected sites. Nail beds of affected toes are intact. Patient able to fully flex both toes. Bacitracin ordered to be applied to affected area on third and fourth toes and covered with Band Aids BID. Patient also advised to try to rest and stay off of Left foot as much as possible for the time being. Patient verbalized understanding of recommendation. Beni Holcomb NP
[2017-11-30] MEDS: BACITRACIN 0.9 GM PACKET TP SCH ×2 (14:15→22:30)
[2017-11-30] MEDS: hydrOXYzine PAMOATE 50 MG CAPSULE (FP) PO PRN (22:30)
[2017-11-30] MEDS: THIAMINE HCL 100 MG TABLET (FP) PO SCH (22:30)
[2017-12-01] MEDS ORDERED: METHADONE HCL 5 MG TABLET (FOR DETOX USE ONLY) PO ONE (06:00)
[2017-12-01 09:49] VITALS: BP 116/71; PULSE 72; TEMP 96
[2017-12-01] MEDS ORDERED: METHADONE HCL 10 MG TABLET (FOR DETOX USE ONLY) PO ONE (10:00)
--- NOTE | 2017-12-01 16:21 | DS ---
[facility] Detox Discharge Summary Admission Date: 11/27/17 Discharge Date: 12/01/17 - History Present History: Cannabis Dependence, Cocaine Dependence, Opioid Dependence Additional Comments: PATIENT INITIALLY INTENT ON GOING TO [facility] ( [place] HOWEVER, HE DID NOT END UP COMPLETING TELEPHONE SCREENING INTERVIEW. PATIENT REPORTS THAT HE WILL GO HOME AT THIS TIME AND, IN THE NEXT FEW DAYS, WILL APPLY FOR ADMISSION TO [facility] OR [facility] ON HIS OWN OR ELSE HE WILL RETURN TO [facility] ([place] WHERE HE WAS PREVIOUSLY A CLIENT. PATIENT WAS DISCHARGED FROM DETOX UNIT IN STABLE MEDICAL CONDITION. Pertinent Past History: Nicotine Dependence, GERD. - Physical Exam Results Vital Signs: Vital Signs Temperature 96.0 F L 12/01/17 09:49 Pulse Rate 72 12/01/17 09:49 Respiratory Rate 18 12/01/17 09:49 Blood Pressure 116/71 12/01/17 09:49 O2 Sat by Pulse Oximetry (%) Pertinent Admission Physical Exam Findings: WITHDRAWAL SYMPTOMS. Laboratory Tests 11/27/17 11/27/17 11/27/17 13:00 13:00 13:00 WBC 5.0 D RBC 4.12 Hgb 13.1 Hct 38.4 MCV 93.2 MCH 31.8 MCHC 34.1 RDW 13.6 Plt Count 270 MPV 7.1 L Sodium 141 Potassium 4.2 Chloride 102 Carbon Dioxide 30 Anion Gap 9 BUN 14 D Creatinine 0.9 D Creat Clearance w eGFR > 60 Random Glucose 109 H Calcium 9.4 Total Bilirubin 0.4 D AST 8 L D ALT 37 D Alkaline Phosphatase 93 Total Protein 7.9 Albumin 4.1 Urine Color Urine Appearance Urine pH Ur Specific [place] Urine Protein Urine Glucose (UA) Urine Ketones Urine Blood Urine Nitrite Urine Bilirubin Urine Urobilinogen Ur Leukocyte Esterase RPR Titer Nonreactive 11/27/17 15:00 WBC RBC Hgb Hct MCV MCH MCHC RDW Plt Count MPV Sodium Potassium Chloride Carbon Dioxide Anion Gap BUN Creatinine Creat Clearance w eGFR Random Glucose Calcium Total Bilirubin AST ALT Alkaline Phosphatase Total Protein Albumin Urine Color Dkyellow Urine Appearance Clear Urine pH 5.0 Ur Specific [place] 1.027 Urine Protein Negative Urine Glucose (UA) Negative Urine Ketones Negative Urine Blood Negative Urine Nitrite Negative Urine Bilirubin Negative Urine Urobilinogen 2.0 Ur Leukocyte Esterase Negative RPR Titer LABS NOTED. - Treatment Hospital Course: Detox Protocol Followed, Detoxed Safely, Responded well, Discharged Condition Good, Rehab Referral Accepted Patient has Accepted a Rehab Referral to: [facility] [place] / [facility]. - Medication Discharge Medications: Ambulatory Orders NK [No Known Home Medication] 12/21/16 - Diagnosis (1) Cannabis dependence, uncomplicated Status: Acute (2) Cocaine dependence, uncomplicated Status: Acute (3) Nicotine dependence Status: Acute Qualifiers: Nicotine product type: cigarettes Substance use status: in withdrawal Qualified Code(s): F17.213 - Nicotine dependence, cigarettes, with withdrawal (4) Opioid dependence with withdrawal Status: Acute (5) Weight loss Status: Acute (6) GERD (gastroesophageal reflux disease) Status: Suspected Qualifiers: Esophagitis presence: esophagitis presence not specified Qualified Code(s) : K21.9 - Gastro-esophageal reflux disease without esophagitis - AMA Did Patient Leave Against Medical Advice: No
[2017-12-02] MEDS ORDERED: METHADONE HCL 5 MG TABLET (FOR DETOX USE ONLY) PO ONE (06:00)
== END 2017-12-01 09:40 | disposition home or self-care (01) | DRG 773 ==
LOC: YASAS 10:16 → Y3N 14:11
PROVIDERS: ADMIT Internal Medicine; ATTEND Internal Medicine
PROC: HZ2ZZZZ Detoxification Services for Substance Abuse Treatment (ICD-10-PCS; principal; 2017-11-27)
DX: F11.23 Opioid dependence with withdrawal (principal); F14.20 Cocaine dependence, uncomplicated; F12.20 Cannabis dependence, uncomplicated; F17.210 Nicotine dependence, cigarettes, uncomplicated; K21.9 Gastro-esophageal reflux disease without esophagitis; R63.4 Abnormal weight loss; Z68.24 Body mass index [BMI] 24.0-24.9, adult
CPT/HCPCS: 36415; 80053; 81003; 85027; 86593; 93005; 93010; J0735

== ENCOUNTER 2018-01-03 10:31 | Inpatient (IN) | payer OTHER ==
[2018-01-03 14:06] VITALS: BMI 24.0
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
[2018-01-03] MEDS ORDERED: guaiFENesin/D-METHORPHAN HB 10 ML UNIT-DOSE CUPS PO PRN (15:03)
[2018-01-03] MEDS ORDERED: MENTHOL/PHENOL 1 EACH UD MM PRN (15:03)
[2018-01-03] MEDS ORDERED: MAGNESIUM CITRATE 300 ML BOTTLE PO PRN (15:03)
[2018-01-03] MEDS ORDERED: P-EPHED 60MG/TRIPROLIDI 2.5MG TABLET PO PRN (15:03)
[2018-01-03] MEDS ORDERED: MAGNESIUM HYDROX 2400MG/30ML ORAL SUSPENSION 30 ML CUP PO PRN (15:03)
[2018-01-03] MEDS ORDERED: IBUPROFEN 400 MG TABLET (FP) PO PRN (15:03)
[2018-01-03] MEDS ORDERED: MAG HYDROX/AL HYDROX/SIMETH 30 ML UNIT-DOSE CUP PO PRN (15:03)
[2018-01-03] MEDS ORDERED: ACETAMINOPHEN 325 MG TABLET (FP) PO PRN (15:03)
[2018-01-03] MEDS ORDERED: NICOTINE POLACRILEX 2 MG GUM BC PRN (15:03)
[2018-01-03] MEDS ORDERED: LOPERAMIDE HCL 2 MG CAPSULE PO PRN (15:03)
[2018-01-03] MEDS ORDERED: METHADONE HCL 10 MG TABLET (FOR DETOX USE ONLY) PO ONE ×2 (16:45→23:00)
[2018-01-03] MEDS ORDERED: diazePAM 5 MG TABLET PO ONE (16:45)
[2018-01-03] MEDS: NICOTINE 21 MG/24 HOURS TOPICAL PATCH TD SCH (17:59)
[2018-01-03] MEDS: RANITIDINE HCL 150 MG TABLET (FP) PO SCH (18:02)
[2018-01-03] MEDS ORDERED: THIAMINE HCL 100 MG TABLET (FP) PO SCH (22:00)
[2018-01-03] MEDS: diazePAM 5 MG TABLET PO SCH (22:09)
[2018-01-03] MEDS: BACITRACIN 0.9 GM PACKET TP SCH (22:09)
[2018-01-03 22:50] LABS: URINE APPEARANCE CLEAR; URINE BILIRUBIN NEGATIVE (NEGATIVE); URINE BLOOD NEGATIVE (NEGATIVE); URINE COLOR LTYELLOW; URINE GLUCOSE (UA) NEGATIVE (NEGATIVE); URINE KETONE NEGATIVE (NEGATIVE); URINE LEUK ESTERASE NEGATIVE (NEGATIVE); URINE NITRITE NEGATIVE (NEGATIVE); URINE PROTEIN NEGATIVE (NEGATIVE); URINE UROBILINOGEN NEGATIVE mg/dL (0.2-1.0)
[2018-01-03] MEDS: diazePAM 5 MG TABLET PO PRN (23:08)
[2018-01-04] MEDS: diazePAM 5 MG TABLET PO SCH (05:28)
[2018-01-04] MEDS: diazePAM 5 MG TABLET PO PRN (08:54)
[2018-01-04 09:24] VITALS: BP 113/76; PULSE 54; TEMP 95.3
[2018-01-04] MEDS ORDERED: PRENATAL VITAMINS W/ FOLIC ACID TABLET (FP) PO SCH (10:00)
[2018-01-04] MEDS ORDERED: METHADONE HCL 10 MG TABLET (FOR DETOX USE ONLY) PO SCH (10:00)
[2018-01-04] MEDS: RANITIDINE HCL 150 MG TABLET (FP) PO SCH (10:10)
[2018-01-04] MEDS: NICOTINE 21 MG/24 HOURS TOPICAL PATCH TD SCH (10:10)
[2018-01-04] MEDS: BACITRACIN 0.9 GM PACKET TP SCH (10:10)
[2018-01-04 10:27] LABS: ALBUMIN 3.6 g/dl (3.4-5.0); ANION GAP 7 (8-16); BLOOD UREA NITROGEN 7 mg/dL (7-18); CALCIUM 9.4 mg/dL (8.5-10.1); CHLORIDE 103 mmol/L (98-107); CO2 30 mmol/L (21-32); GLUCOSE,RANDOM 88 mg/dL (74-106); POTASSIUM 4.6 mmol/L (3.5-5.1); SODIUM 140 mmol/L (136-145)
[2018-01-04 10:33] LABS: ALK PHOS 75 U/L (45-117); BILIRUBIN,TOTAL 0.5 mg/dL (0.2-1.0); CREATININE 0.8 mg/dL (0.7-1.3); SGOT/AST 7 U/L (15-37); SGPT/ALT 17 U/L (12-78); TOT PROT 7.2 g/dl (6.4-8.2)
[2018-01-04 10:44] LABS: HEMATOCRIT 38.5 % (35.4-49); HEMOGLOBIN 13.2 GM/dL (11.7-16.9); MCH 32.1 pg (25.7-33.7); MCHC 34.4 g/dl (32.0-35.9); MEAN CELL VOLUME 93.3 fl (80-96); MEAN PLT VOLUME 7.2 fl (7.5-11.1); PLATELET COUNT 293 K/MM3 (134-434); RBC 4.13 M/mm3 (4.00-5.60); RDW 13.8 % (11.9-15.9); WHITE BLOOD COUNT 6.2 K/mm3 (4.0-10.0)
--- NOTE | 2018-01-04 12:00 | PN ---
S CIWA - CIWA Score Nausea/Vomitin-No Nausea/No Vomiting Muscle Tremors: 3 Anxiety: 4-Mod. Anxious/Guarded Agitation: 3 Paroxysmal Sweats: 3 Orientation: 0-Oriented Tacttile Disturbances: 2-Mild Itch/Numbness/Burn Auditory Disturbances: 2-Mild Harshness/Frighten Visual Disturbances: 0-None Headache: 0-None Present CIWA-Ar Total Score: 17 S COWS - Scale Resting Pulse: 0= [place] 80 or Below Sweatin= Chills/Flushing Restless Observation: 1= Difficult to Sit Still Pupil Size: 0= Normal to Room Light Bone or Joint Aches: 2= Severe Diffuse Aches Runny Nose/ Eye Tearin= None GI Upset > 30mins: 1= Stomach Cramp Tremor Observation of Outstretched Hands: 0= None Yawning Observation: 1= 1-2x During Session Anxiety or Irritability: 2=Irritable/Anxious Goose Flesh Skin: 3=Piloerection COWS Score: 11 S Progress Note (SOAP) Subjective: Interrupted Sleep, Sweating, Fatigue, Body Aches. Objective: PATIENT A & O X 3, OBSERVED AMBULATING ON UNIT. NO ACUTE DISTRESS. 01/04/18 11:58 Vital Signs Temperature 95.3 F L 01/04/18 09:23 Pulse Rate 54 L 01/04/18 09:23 Respiratory Rate 18 01/04/18 09:23 Blood Pressure 113/76 01/04/18 09:23 O2 Sat by Pulse Oximetry (%) Laboratory Tests 01/03/18 01/04/18 01/04/18 19:45 07:30 07:30 WBC 6.2 RBC 4.13 Hgb 13.2 Hct 38.5 MCV 93.3 MCH 32.1 MCHC 34.4 RDW 13.8 Plt Count 293 MPV 7.2 L Sodium 140 Potassium 4.6 Chloride 103 Carbon Dioxide 30 Anion Gap 7 L BUN 7 D Creatinine 0.8 Creat Clearance w eGFR > 60 Random Glucose 88 Calcium 9.4 Total Bilirubin 0.5 D AST 7 L ALT 17 D Alkaline Phosphatase 75 Total Protein 7.2 Albumin 3.6 Urine Color Ltyellow Urine Appearance Clear Urine pH 6.0 Ur Specific [place] 1.018 Urine Protein Negative Urine Glucose (UA) Negative Urine Ketones Negative Urine Blood Negative Urine Nitrite Negative Urine Bilirubin Negative Urine Urobilinogen Negative Ur Leukocyte Esterase Negative RPR Titer 01/04/18 07:30 WBC RBC Hgb Hct MCV MCH MCHC RDW Plt Count MPV Sodium Potassium Chloride Carbon Dioxide Anion Gap BUN Creatinine Creat Clearance w eGFR Random Glucose Calcium Total Bilirubin AST ALT Alkaline Phosphatase Total Protein Albumin Urine Color Urine Appearance Urine pH Ur Specific [place] Urine Protein Urine Glucose (UA) Urine Ketones Urine Blood Urine Nitrite Urine Bilirubin Urine Urobilinogen Ur Leukocyte Esterase RPR Titer Nonreactive LABS NOTED. Assessment: 01/04/18 11:59 WITHDRAWAL SYMPTOMS. Plan: CONTINUE DETOX. INCREASE DAILY PO FLUID INTAKE.
--- NOTE | 2018-01-04 12:00 | DS ---
[facility] Detox Discharge Summary Admission Date: 01/03/18 Discharge Date: 01/04/18 - History Present History: Alcohol Dependence, Cannabis Dependence, Cocaine Dependence, Opioid Dependence, Sedative Dependence Additional Comments: PATIENT DOES NOT WISH TO STAY TO COMPLETE DETOX REGIMEN. RISKS OF LEAVING DETOX UNIT AGAINST MEDICAL ADVICE AND PRIOR TO COMPLETION OF DETOX REGIMEN EXPLAINED TO PATIENT. PATIENT ADVISED TO GO IMMEDIATELY TO NEAREST ER SHOULD ANY INTOLERABLE DETOX SYMPTOMS DEVELOP AT ANY TIME. PATIENT LEFT DETOX UNIT IN STABLE MEDICAL CONDITION. Pertinent Past History: Nicotine Dependence, GERD. - Physical Exam Results Vital Signs: Vital Signs Temperature 95.3 F L 01/04/18 09:23 Pulse Rate 54 L 01/04/18 09:23 Respiratory Rate 18 01/04/18 09:23 Blood Pressure 113/76 01/04/18 09:23 O2 Sat by Pulse Oximetry (%) Pertinent Admission Physical Exam Findings: WITHDRAWAL SYMPTOMS. Laboratory Tests 01/03/18 01/04/18 01/04/18 19:45 07:30 07:30 WBC 6.2 RBC 4.13 Hgb 13.2 Hct 38.5 MCV 93.3 MCH 32.1 MCHC 34.4 RDW 13.8 Plt Count 293 MPV 7.2 L Sodium 140 Potassium 4.6 Chloride 103 Carbon Dioxide 30 Anion Gap 7 L BUN 7 D Creatinine 0.8 Creat Clearance w eGFR > 60 Random Glucose 88 Calcium 9.4 Total Bilirubin 0.5 D AST 7 L ALT 17 D Alkaline Phosphatase 75 Total Protein 7.2 Albumin 3.6 Urine Color Ltyellow Urine Appearance Clear Urine pH 6.0 Ur Specific [place] 1.018 Urine Protein Negative Urine Glucose (UA) Negative Urine Ketones Negative Urine Blood Negative Urine Nitrite Negative Urine Bilirubin Negative Urine Urobilinogen Negative Ur Leukocyte Esterase Negative RPR Titer 01/04/18 07:30 WBC RBC Hgb Hct MCV MCH MCHC RDW Plt Count MPV Sodium Potassium Chloride Carbon Dioxide Anion Gap BUN Creatinine Creat Clearance w eGFR Random Glucose Calcium Total Bilirubin AST ALT Alkaline Phosphatase Total Protein Albumin Urine Color Urine Appearance Urine pH Ur Specific [place] Urine Protein Urine Glucose (UA) Urine Ketones Urine Blood Urine Nitrite Urine Bilirubin Urine Urobilinogen Ur Leukocyte Esterase RPR Titer Nonreactive LABS NOTED. - Treatment Hospital Course: Detoxed Safely - Medication Discharge Medications: Ambulatory Orders NK [No Known Home Medication] 12/21/16 - Diagnosis (1) Alcohol dependence with uncomplicated withdrawal Current Visit: Yes Status: Acute (2) Cannabis dependence, uncomplicated Current Visit: Yes Status: Acute (3) Cocaine dependence, uncomplicated Current Visit: Yes Status: Acute (4) Nicotine dependence Current Visit: Yes Status: Chronic Qualifiers: Nicotine product type: cigarettes Substance use status: uncomplicated Qualified Code(s): F17.210 - Nicotine dependence, cigarettes, uncomplicated (5) Opioid dependence with withdrawal Current Visit: Yes Status: Acute (6) GERD (gastroesophageal reflux disease) Current Visit: Yes Status: Suspected Qualifiers: Esophagitis presence: esophagitis presence not specified Qualified Code(s) : K21.9 - Gastro-esophageal reflux disease without esophagitis (7) Sedative, hypnotic or anxiolytic dependence with withdrawal, uncomplicated Current Visit: Yes Status: Acute (8) History of iron deficiency anemia Current Visit: Yes Status: Suspected - AMA Did Patient Leave Against Medical Advice: Yes (PATIENT DID NOT WISH TO STAY TO COMPLETE DETOX REGIMEN.)
--- NOTE | 2018-01-04 12:26 | EKG ---
Test Reason : Blood Pressure : / mmHG Vent. Rate : 074 BPM Atrial Rate : 074 BPM P-R Int : 156 ms QRS Dur : 092 ms QT Int : 372 ms P-R-T Axes : 045 061 031 degrees QTc Int : 412 ms SINUS RHYTHM WITH MARKED SINUS ARRHYTHMIA OTHERWISE NORMAL ECG WHEN COMPARED WITH ECG OF 27-NOV-2017 15:22, NONSPECIFIC T WAVE ABNORMALITY NOW EVIDENT IN ANTERIOR LEADS Confirmed by ANDREI RONQUILLO, CHRISTOPHER ([id number]) on 01/04/2018 12:26:11 PM Referred By: Kamari GLYNN Confirmed By:CHRISTOPHER FORBES MD
[2018-01-05] MEDS ORDERED: diazePAM 5 MG TABLET PO SCH (10:00)
[2018-01-05] MEDS ORDERED: METHADONE HCL 5 MG TABLET (FOR DETOX USE ONLY) PO SCH (10:00)
[2018-01-07] MEDS ORDERED: diazePAM 5 MG TABLET PO SCH (10:00)
[2018-01-07] MEDS ORDERED: METHADONE HCL 10 MG TABLET (FOR DETOX USE ONLY) PO SCH (10:00)
[2018-01-08] MEDS ORDERED: METHADONE HCL 5 MG TABLET (FOR DETOX USE ONLY) PO SCH (06:00)
== END 2018-01-04 11:03 | disposition left against medical advice (07) | DRG 770 ==
LOC: YASAS 10:31 → Y3N 16:01
PROVIDERS: ADMIT Internal Medicine; ATTEND Internal Medicine
PROC: HZ2ZZZZ Detoxification Services for Substance Abuse Treatment (ICD-10-PCS; principal; 2018-01-03)
DX: F11.23 Opioid dependence with withdrawal (principal); F10.230 Alcohol dependence with withdrawal, uncomplicated; F13.230 Sedative, hypnotic or anxiolytic dependence with withdrawal, uncomplicated; F14.20 Cocaine dependence, uncomplicated; F12.20 Cannabis dependence, uncomplicated; F17.210 Nicotine dependence, cigarettes, uncomplicated; K21.9 Gastro-esophageal reflux disease without esophagitis; D50.9 Iron deficiency anemia, unspecified; Z91.013 Allergy to seafood
CPT/HCPCS: 36415; 80053; 81003; 85027; 86593; 93005; 93010

== ENCOUNTER 2018-08-20 11:30 | Inpatient (IN) | payer OTHER ==
[2018-08-20 15:24] VITALS: BMI 23.6
--- NOTE | 2018-08-20 16:40 | HP ---
COWS - Scale Resting Pulse: 0= UT 80 or Below Sweatin=Flushed/Facial Moisture Restless Observation: 3= Extraneous Movement Pupil Size: 2= Moderately Dilated (5 mm) Bone or Joint Aches: 2= Severe Diffuse Aches Runny Nose/ Eye Tearin= Runny Nose/Eyes GI Upset > 30mins: 2= Nausea/Diarrhea (No diarrhea) Tremor Observation: 2= Slight Tremor Visible Yawning Observation: 0= None Anxiety or Irritability: 1=Feels Anxious/Irritable Goose Flesh Skin: 0=Smooth Skin COWS Score: 16 CIWA Score - CIWA Score Nausea/Vomitin-Mild Nausea/No Vomiting Muscle Tremors: 3 Anxiety: 3 Agitation: 4-Moderately Restless Paroxysmal Sweats: 3 (facial perspiration) Orientation: 0-Oriented Tacttile Disturbances: 0-None Auditory Disturbances: 0-None Visual Disturbances: 0-None Headache: 2-Mild CIWA-Ar Total Score: 16 Admission [facility] - HPI Chief Complaint: Here for alcohol and benzo withdrawal. Allergies/Adverse Reactions: Allergies Allergy/AdvReac Type Severity Reaction Status Date / Time Fish Containing Products Allergy Severe Hives Verified 08/20/18 15:24 No Known Drug Allergies Allergy Verified 08/20/18 15:24 History of Present Illness: Here for detox from alcohol and benzos. Also using heroin despite being on methadone maintenance. Oral Benzo use began at age 14. Nasal Cocaine use began at age 16. IV Heroin use began at age 20. Uses IV. States does not share needles or works. Denies hx blackouts, seizures, or overdose. On [facility] Methadone Maintenance Program. Current methadone dose is 100 mg. Last received 08/19/18. Will receive alcohol detox and be maintained on methadone. Exam Limitations: No Limitations - Ebola screening Have you traveled outside of the country in the last 21 days: No Have you had contact with anyone from an Ebola affected area: No Have you been sick,other than usual withdrawal symptoms: No Do you have a fever: No - Review of Systems Constitutional: Chills, Diaphoresis, Changes in sleep (Difficulty staying asleep ) EENT: reports: Dental Problems (Crakced wisdom teeth. Chews and swallows okay.) Respiratory: reports: No Symptoms reported Cardiac: reports: No Symptoms Reported GI: reports: Nausea (r/t withdrawal), Indigestion (Acid reflux - takes TUMS and Zantac, as needed) : reports: No Symptoms Reported Musculoskeletal: reports: Back Pain (r/t withdrawal), Other (Body aches r/t withdrawal) Integumentary: reports: Lesions (Scrapped both knees 2 days ago.) Neuro: reports: Tremors (r/t withdrawal) Endocrine: reports: No Symptoms Reported Hematology: reports: Anemia (HGB low. Not on medications) Psychiatric: reports: Judgement Intact, Orientated x3, Agitated, Anxious Patient History - Patient Medical History Hx Anemia: Yes (Iron-deficiency type; No meds.) Hx Asthma: No Hx Chronic Obstructive Pulmonary Disease (COPD): No Hx Cancer: No Hx Cardiac Disorders: No Hx Congestive Heart Failure: No Hx Hypertension: No Hx Hypercholesterolemia: No Hx Pacemaker: No HX Cerebrovascular Accident: No Hx Seizures: No Hx Dementia: No Hx Diabetes: No Hx Gastrointestinal Disorders: No Hx Liver Disease: No Hx Genitourinary Disorders: No Hx Sexually Transmitted Disorders: No Hx Renal Disease (ESRD): No Hx Thyroid Disease: No Hx Human Immunodeficiency Virus (HIV): No (Last tested in 2017: NEGATIVE.) Hx Hepatitis C: No (Last tested in 2017: NEGATIVE.) Hx Depression: No Hx Suicide Attempt: No Hx Bipolar Disorder: No Hx Schizophrenia: No - Patient Surgical History Past Surgical History: No Hx Neurologic Surgery: No Hx Cataract Extraction: No Hx Cardiac Surgery: No Hx Lung Surgery: No Hx Breast Surgery: No Hx Breast Biopsy: No Hx Abdominal Surgery: No Hx Appendectomy: No Hx Cholecystectomy: No Hx Genitourinary Surgery: No Hx Section: No Hx Orthopedic Surgery: No Other Surgical History: DENIES. Anesthesia Reaction: No - PPD History Previous Implant?: Yes Documented Results: Negative w/proof Implanted On Prior R Admission?: Yes Date: 12/23/16 Results: 0 mm PPD to be Administered?: Yes - Smoking Cessation Smoking history: Current every day smoker Have you smoked in the past 12 months: Yes Aproximately how many cigarettes per day: 10 Cigars Per Day: 0 Hx Chewing Tobacco Use: No Initiated information on smoking cessation: Yes 'Breaking Loose' booklet given: 08/20/18 - Substance & Tx. History Hx Alcohol Use: Yes Hx Substance Use: Yes Substance Use Type: Alcohol, Cocaine, Heroin, Prescribed Hx Substance Use Treatment: Yes (detox, rehab, MMTP) - Substances Abused Alcohol Route: Oral Frequency: Daily Amount used: 1 PINT Age of first use: 15 Date of Last Use: 08/20/18 Alprazolam (Xanax) Route: Oral Frequency: Daily Amount used: 1/2MG Age of first use: 14 Date of Last Use: 08/20/18 Heroin Route: Injection Frequency: Daily Amount used: 5 BAGS Age of first use: 20 Date of Last Use: 08/20/18 Family Disease History - Family Disease History Family Disease History: Diabetes: Grandparent (COPD) Admission Physical Exam [facility] - Vital Signs Vital Signs: Vital Signs - 24 hr 08/20/18 15:10 Temperature 97.9 F Pulse Rate 80 Respiratory 18 Rate Blood Pressure 139/83 - Physical General Appearance: Yes: Moderate Distress, Tremorous, Sweating, Anxious HEENTM: Yes: EOMI, Hearing grossly Normal, Normocephalic, Normal Voice, KAI ( Pupils = 5 mm), Pharynx Normal, Rhinorrhea (Clear) Respiratory: Yes: No Respiratory Distress, Wheezing ((R) exp wheeze. No rales/ crackles), Other (Cough productive of whitish phlegm) Neck: Yes: No masses,lesions,Nodules, Supple Breast: Yes: Breast Exam Deferred Cardiology: Yes: Regular Rhythm, Regular Rate, S1, S2 Abdominal: Yes: Non Tender, Flat, Soft, Increased Bowel Sounds Genitourinary: Yes: Within Normal Limits Back: Yes: Normal Inspection Extremities: Yes: Normal Capillary Refill, Tremors (Mild tremors of hands w/ extension) Neurological: Yes: metal caster II-XII NML intact, Fully Oriented, Alert, Motor Strength 5/5, Normal Mood/Affect Integumentary: Yes: Normal Color, Dry, Warm, Track Wade (Track wade at antecubital area. No increased warmth or erythema) Lymphatic: Yes: Within Normal Limits - Diagnostic (1) Alcohol dependence with uncomplicated withdrawal Current Visit: Yes Status: Acute (2) Methadone maintenance therapy patient Current Visit: Yes Status: Chronic (3) Sedative, hypnotic or anxiolytic dependence with withdrawal, uncomplicated Current Visit: Yes Status: Acute (4) GERD (gastroesophageal reflux disease) Current Visit: Yes Status: Chronic Qualifiers: Esophagitis presence: esophagitis presence not specified Qualified Code(s) : K21.9 - Gastro-esophageal reflux disease without esophagitis (5) Wheezing on auscultation Current Visit: Yes Status: Acute (6) Cough Current Visit: Yes Status: Acute (7) Nicotine dependence Current Visit: Yes Status: Chronic Qualifiers: Nicotine product type: cigarettes Substance use status: uncomplicated Qualified Code(s): F17.210 - Nicotine dependence, cigarettes, uncomplicated Cleared for Admission [facility] - Detox or Rehab [facility] Level of Care: Medically Managed Detox Regimen/Protocol: Librium S Breath Alcohol Content Breath Alcohol Content: 0 Urine Drug Screen - Results Drug Screen Negative: No Urine Drug Screen Results: THC-Marijuana, DARYA-Cocaine, OPI-Opiates, BAR- Barbiturates, BZO-Benzodiazepines, MTD-Methadone, OXY-Oxycodone, FEN-Fentanyl
[2018-08-20] MEDS ORDERED: LOPERAMIDE HCL 2 MG CAPSULE PO PRN (17:05)
[2018-08-20] MEDS ORDERED: P-EPHED 60MG/TRIPROLIDI 2.5MG TABLET PO PRN (17:05)
[2018-08-20] MEDS ORDERED: IBUPROFEN 400 MG TABLET (FP) PO PRN (17:05)
[2018-08-20] MEDS ORDERED: MAGNESIUM CITRATE 300 ML BOTTLE PO PRN (17:05)
[2018-08-20] MEDS ORDERED: MAG HYDROX/AL HYDROX/SIMETH 30 ML UNIT-DOSE CUP PO PRN (17:05)
[2018-08-20] MEDS ORDERED: MENTHOL/PHENOL 1 EACH UD MM PRN (17:05)
[2018-08-20] MEDS ORDERED: ACETAMINOPHEN 325 MG TABLET (FP) PO PRN (17:05)
[2018-08-20] MEDS ORDERED: chlordiazePOXIDE HCL 25 MG CAPSULE PO PRN (17:05)
[2018-08-20] MEDS ORDERED: MAGNESIUM HYDROX 2400MG/30ML ORAL SUSPENSION 30 ML CUP PO PRN (17:05)
[2018-08-20] MEDS ORDERED: chlordiazePOXIDE HCL 25 MG CAPSULE PO ONE (18:00)
[2018-08-20] MEDS ORDERED: METHADONE HCL 10 MG TABLET PO ONE (18:00)
[2018-08-20] MEDS: ALBUTEROL SO4 0.083% IH SOL 2.5 MG/3 ML VIAL.NEB. NEB SCH ×2 (19:39→22:19)
[2018-08-20] MEDS: guaiFENesin 200 MG/10 ML 10 ML UNIT-DOSE CUPS PO SCH ×2 (21:00→23:06)
[2018-08-20] MEDS: BACITRACIN 0.9 GM PACKET TP SCH (22:19)
[2018-08-20] MEDS: chlordiazePOXIDE HCL 25 MG CAPSULE PO SCH (22:20)
[2018-08-20] MEDS: THIAMINE HCL 100 MG TABLET (FP) PO SCH (22:20)
[2018-08-20] MEDS: hydrOXYzine PAMOATE 50 MG CAPSULE (FP) PO PRN (22:21)
[2018-08-20] MEDS: NICOTINE POLACRILEX 2 MG GUM BC PRN (22:22)
[2018-08-20 23:53] LABS: URINE APPEARANCE CLEAR; URINE BILIRUBIN NEGATIVE (<2.0 mg/dL); URINE COLOR YELLOW; URINE GLUCOSE (UA) NEGATIVE (NEGATIVE); URINE KETONE NEGATIVE (NEGATIVE); URINE LEUK ESTERASE TRACE (NEGATIVE); URINE NITRITE NEGATIVE (NEGATIVE); URINE PROTEIN NEGATIVE (NEGATIVE)
[2018-08-21 00:20] LABS: URINE MUCUS FEW
[2018-08-21] MEDS: chlordiazePOXIDE HCL 25 MG CAPSULE PO SCH ×4 (06:20→22:11)
[2018-08-21] MEDS: hydrOXYzine PAMOATE 50 MG CAPSULE (FP) PO PRN ×2 (06:23→20:02)
[2018-08-21] MEDS ORDERED: METHADONE HCL 5 MG TABLET PO SCH (09:00)
[2018-08-21] MEDS ORDERED: METHADONE HCL 10 MG TABLET ONE (10:01)
[2018-08-21] MEDS ORDERED: METHADONE HCL 40 MG DISPERSABLE TABLET ONE (10:01)
[2018-08-21] MEDS: guaiFENesin 200 MG/10 ML 10 ML UNIT-DOSE CUPS PO SCH ×4 (10:20→22:28)
[2018-08-21] MEDS: METHADONE 80 MG, METHADONE 20 MG PO SCH (10:21)
[2018-08-21] MEDS: PRENATAL VITAMINS W/ FOLIC ACID TABLET (FP) PO SCH (10:21)
[2018-08-21] MEDS: NICOTINE 14 MG/24 HOURS TOPICAL PATCH TD SCH (10:21)
[2018-08-21] MEDS: BACITRACIN 0.9 GM PACKET TP SCH ×2 (10:21→22:27)
[2018-08-21 10:22] LABS: HEMATOCRIT 38.2 % (35.4-49); HEMOGLOBIN 12.9 GM/dL (11.7-16.9); MCH 32.2 pg (25.7-33.7); MCHC 33.7 g/dl (32.0-35.9); MEAN CELL VOLUME 95.6 fl (80-96); MEAN PLT VOLUME 7.2 fl (7.5-11.1); PLATELET COUNT 276 K/MM3 (134-434); RDW 13.4 % (11.9-15.9); WHITE BLOOD COUNT 5.5 K/mm3 (4.0-10.0)
[2018-08-21 11:17] LABS: ALBUMIN 3.6 g/dl (3.4-5.0); ALK PHOS 83 U/L (45-117); ANION GAP 7 MMOL/L (8-16); BILIRUBIN,TOTAL 0.2 mg/dL (0.2-1); BLOOD UREA NITROGEN 12 mg/dL (7-18); CALCIUM 8.7 mg/dL (8.5-10.1); CHLORIDE 109 mmol/L (98-107); CO2 28 mmol/L (21-32); CREATININE 0.8 mg/dL (0.55-1.3); GLUCOSE,RANDOM 68 mg/dL (74-106); POTASSIUM 3.8 mmol/L (3.5-5.1); SGOT/AST 8 U/L (15-37); SGPT/ALT 19 U/L (13-61); SODIUM 144 mmol/L (136-145); TOT PROT 6.6 g/dl (6.4-8.2)
--- NOTE | 2018-08-21 11:32 | PN ---
[facility] CIWA - CIWA Score Nausea/Vomitin Muscle Tremors: 2 Anxiety: 2 Agitation: 1-Slight > Activity Paroxysmal Sweats: 2 Orientation: 0-Oriented Tacttile Disturbances: 0-None Auditory Disturbances: 0-None Visual Disturbances: 0-None Headache: 2-Mild CIWA-Ar Total Score: 11 [facility] Progress Note (SOAP) Subjective: PATIENT C/O HEADACHE, SWEATING, SHAKES AND NAUSEA/DIARRHEA Objective: 08/21/18 11:31 Laboratory Tests 08/20/18 08/21/18 08/21/18 22:22 07:30 07:30 WBC 5.5 RBC 4.00 Hgb 12.9 Hct 38.2 MCV 95.6 MCH 32.2 MCHC 33.7 RDW 13.4 Plt Count 276 MPV 7.2 L Sodium 144 Potassium 3.8 Chloride 109 H Carbon Dioxide 28 Anion Gap 7 L BUN 12 Creatinine 0.8 Creat Clearance w eGFR > 60 Random Glucose 68 L Calcium 8.7 Total Bilirubin 0.2 AST 8 L ALT 19 Alkaline Phosphatase 83 Total Protein 6.6 Albumin 3.6 Urine Color Yellow Urine Appearance Clear Urine pH 5.0 Ur Specific [place] 1.029 Urine Protein Negative Urine Glucose (UA) Negative Urine Ketones Negative Urine Blood Negative Urine Nitrite Negative Urine Bilirubin Negative Urine Urobilinogen 2.0 Ur Leukocyte Esterase Trace Urine WBC (Auto) 1 Urine RBC (Auto) 1 Urine Mucus Few PE: ALERT AND ORIENTED X 3 SKIN WARM AND MOIST CAR S1S2 RESP CTA BL GI SOFT, BS+, NT EXT +TREMORS ANXIOUS Assessment: 08/21/18 11:32 WITHDRAWAL SX Plan: CONTINUE DETOX ORDERED ENCOURAGE ORAL FLUIDS CONTINUE TO MONITOR CLINICALLY
[2018-08-21] MEDS: NICOTINE POLACRILEX 2 MG GUM BC PRN ×2 (12:35→20:02)
--- NOTE | 2018-08-21 13:00 | EKG ---
Test Reason : Blood Pressure : / mmHG Vent. Rate : 056 BPM Atrial Rate : 056 BPM P-R Int : 158 ms QRS Dur : 084 ms QT Int : 424 ms P-R-T Axes : 046 045 034 degrees QTc Int : 409 ms SINUS BRADYCARDIA WITH SINUS ARRHYTHMIA OTHERWISE NORMAL ECG Confirmed by MD JOSHUA, CAIO ([id number]) on 08/21/2018 1:00:01 PM Referred By: Confirmed By:CAIO LEWIS MD
[2018-08-21] MEDS: ALBUTEROL SO4 0.083% IH SOL 2.5 MG/3 ML VIAL.NEB. NEB PRN (14:41)
--- NOTE | 2018-08-21 17:43 | CONSULT ---
[facility] Psychiatric Consult - Data Date of interview: 08/21/18 Admission source: [facility] Identifying data: Re-admission to [facility] for this 23 y/o male seeking detoxification treatment, on , for heroin, alcohol and benzodiazepine (xanax) dependence. 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 Substance Abuse History: Confirmed by the patient in this interview. Details in current [facility] report : Smoking history: Current every day smoker. Have you smoked in the past 12 months: Yes. Aproximately how many cigarettes per day: 10. Cigars Per Day: 0. Hx Chewing Tobacco Use: No. Initiated information on smoking cessation: Yes. 'Breaking Loose' booklet given: 08/20/18. - Substance & Tx. History. Hx Alcohol Use: Yes. Hx Substance Use: Yes. Substance Use Type : Alcohol, Cocaine, Heroin, Prescribed. Hx Substance Use Treatment: Yes (detox , rehab, [facility]MTP). - Substances Abused. Alcohol. Route: Oral. Frequency: Daily. Amount used: 1 PINT. Age of first use: 15. Date of Last Use: . Alprazolam (Xanax). Route: Oral. Frequency: Daily. Amount used: 1/ 2MG. Age of first use: 14. Date of Last Use: 08/20/18. Heroin. Route: Injection. Frequency: Daily. Amount used: 5 BAGS. Age of first use: 20. Date of Last Use: 08/20/18 Medical History: GERD and anemia. Psychiatric History: Patient denies history of psychiatric hospitalizations or suicide attempts. Mr Wiley is currently on methadone maintenance (100 mg/day) at the [facility] program in [facility] (three years of attendance). Physical/Sexual Abuse/Trauma History: Patient denies. Additional Comment: Urine Drug Screen Results: THC-Marijuana, DARYA-Cocaine, OPI- Opiates, BAR-Barbiturates, BZO-Benzodiazepines, MTD-Methadone, OXY-Oxycodone, FEN-Fentanyl. Noted. Mental Status Exam - Mental Status Exam Alert and Oriented to: Time, Place, Person Cognitive Function: Good Patient Appearance: Well Groomed (tattoos on both arms + forearms) Mood: Nervous, Hopeful Affect: Normal Range Patient Behavior: Fatigued, Cooperative Speech Pattern: Clear, Appropriate Voice Loudness: Normal Thought Process: Intact, Goal Oriented Thought Disorder: Not Present Hallucinations: Denies Suicidal Ideation: Denies Homicidal Ideation: Denies Insight/Judgement: Poor Sleep: Well Appetite: Good Muscle strength/Tone: Normal Gait/Station: Normal Psychiatric Findings - Problem List ([place] 1, 2,3) (1) Opioid dependence on agonist therapy Current Visit: Yes Status: Acute (2) Alcohol dependence with uncomplicated withdrawal Current Visit: Yes Status: Acute (3) Sedative, hypnotic or anxiolytic dependence with withdrawal, uncomplicated Current Visit: Yes Status: Acute (4) Cannabis dependence, uncomplicated Current Visit: Yes Status: Acute (5) Nicotine dependence Current Visit: Yes Status: Acute Qualifiers: Nicotine product type: cigarettes Substance use status: uncomplicated Qualified Code(s): F17.210 - Nicotine dependence, cigarettes, uncomplicated
[2018-08-21] MEDS: MELATONIN 5 MG TABLETS PO PRN (22:11)
[2018-08-21] MEDS: THIAMINE HCL 100 MG TABLET (FP) PO SCH (22:11)
[2018-08-22] MEDS ORDERED: METHADONE HCL 10 MG TABLET ONE (03:38)
[2018-08-22] MEDS ORDERED: METHADONE HCL 40 MG DISPERSABLE TABLET ONE (03:39)
[2018-08-22] MEDS: chlordiazePOXIDE HCL 25 MG CAPSULE PO SCH ×3 (05:44→17:14)
[2018-08-22] MEDS: METHADONE 80 MG, METHADONE 20 MG PO SCH (05:44)
[2018-08-22] MEDS: hydrOXYzine PAMOATE 50 MG CAPSULE (FP) PO PRN ×2 (08:47→17:17)
[2018-08-22] MEDS: NICOTINE POLACRILEX 2 MG GUM BC PRN ×3 (08:47→22:44)
[2018-08-22] MEDS: ALBUTEROL SO4 0.083% IH SOL 2.5 MG/3 ML VIAL.NEB. NEB PRN (08:50)
[2018-08-22] MEDS: guaiFENesin 200 MG/10 ML 10 ML UNIT-DOSE CUPS PO SCH ×2 (10:23→14:43)
[2018-08-22] MEDS: NICOTINE 14 MG/24 HOURS TOPICAL PATCH TD SCH (10:23)
[2018-08-22] MEDS: BACITRACIN 0.9 GM PACKET TP SCH ×2 (10:23→22:30)
[2018-08-22] MEDS: PRENATAL VITAMINS W/ FOLIC ACID TABLET (FP) PO SCH (10:23)
--- NOTE | 2018-08-22 12:13 | PN ---
S CIWA - CIWA Score Nausea/Vomitin-No Nausea/No Vomiting Muscle Tremors: None Anxiety: 3 Agitation: 3 Paroxysmal Sweats: 2 Orientation: 0-Oriented Tacttile Disturbances: 0-None Auditory Disturbances: 0-None Visual Disturbances: 0-None Headache: 2-Mild CIWA-Ar Total Score: 10 S Progress Note (SOAP) Subjective: PATIENT C/O ANXIETY, RESTLESSNESS, SWEATING. Objective: 08/22/18 12:11 Vital Signs Temperature 98.6 F 08/22/18 10:34 Pulse Rate 66 08/22/18 10:34 Respiratory Rate 18 08/22/18 10:34 Blood Pressure 108/70 08/22/18 10:34 O2 Sat by Pulse Oximetry (%) Laboratory Tests 08/20/18 08/21/18 08/21/18 22:22 07:30 07:30 WBC 5.5 RBC 4.00 Hgb 12.9 Hct 38.2 MCV 95.6 MCH 32.2 MCHC 33.7 RDW 13.4 Plt Count 276 MPV 7.2 L Sodium 144 Potassium 3.8 Chloride 109 H Carbon Dioxide 28 Anion Gap 7 L BUN 12 Creatinine 0.8 Creat Clearance w eGFR > 60 Random Glucose 68 L Calcium 8.7 Total Bilirubin 0.2 AST 8 L ALT 19 Alkaline Phosphatase 83 Total Protein 6.6 Albumin 3.6 Urine Color Yellow Urine Appearance Clear Urine pH 5.0 Ur Specific [place] 1.029 Urine Protein Negative Urine Glucose (UA) Negative Urine Ketones Negative Urine Blood Negative Urine Nitrite Negative Urine Bilirubin Negative Urine Urobilinogen 2.0 Ur Leukocyte Esterase Trace Urine WBC (Auto) 1 Urine RBC (Auto) 1 Urine Mucus Few RPR Titer 08/21/18 07:30 WBC RBC Hgb Hct MCV MCH MCHC RDW Plt Count MPV Sodium Potassium Chloride Carbon Dioxide Anion Gap BUN Creatinine Creat Clearance w eGFR Random Glucose Calcium Total Bilirubin AST ALT Alkaline Phosphatase Total Protein Albumin Urine Color Urine Appearance Urine pH Ur Specific [place] Urine Protein Urine Glucose (UA) Urine Ketones Urine Blood Urine Nitrite Urine Bilirubin Urine Urobilinogen Ur Leukocyte Esterase Urine WBC (Auto) Urine RBC (Auto) Urine Mucus RPR Titer Nonreactive PE: SKIN WARM AND MOIST CAR S1S2 RESP CTA BL GI SOFT, BS+, NT EXT FULL ROM ALERT AND ORIENTED Assessment: 08/22/18 12:12 WITHDRAWAL SX Plan: CONTINUE DETOX REGIMEN ENCOURAGE ORAL FLUIDS CONTINUE TO MONITOR CLINICALLY
[2018-08-22] MEDS: THIAMINE HCL 100 MG TABLET (FP) PO SCH (22:30)
[2018-08-22] MEDS: chlordiazePOXIDE 5 MG CAPSULE PO SCH (22:30)
[2018-08-22] MEDS: MELATONIN 5 MG TABLETS PO PRN (22:31)
[2018-08-23] MEDS ORDERED: METHADONE HCL 10 MG TABLET ONE (04:46)
[2018-08-23] MEDS ORDERED: METHADONE HCL 40 MG DISPERSABLE TABLET ONE (04:47)
[2018-08-23] MEDS: METHADONE 80 MG, METHADONE 20 MG PO SCH (05:18)
[2018-08-23] MEDS: chlordiazePOXIDE 5 MG CAPSULE PO SCH ×3 (05:18→17:31)
[2018-08-23] MEDS: NICOTINE POLACRILEX 2 MG GUM BC PRN ×2 (08:52→15:41)
[2018-08-23] MEDS: ALBUTEROL SO4 0.083% IH SOL 2.5 MG/3 ML VIAL.NEB. NEB PRN (08:53)
[2018-08-23] MEDS: PRENATAL VITAMINS W/ FOLIC ACID TABLET (FP) PO SCH (10:02)
[2018-08-23] MEDS: BACITRACIN 0.9 GM PACKET TP SCH ×2 (10:02→22:09)
[2018-08-23] MEDS: NICOTINE 14 MG/24 HOURS TOPICAL PATCH TD SCH (10:02)
[2018-08-23] MEDS: hydrOXYzine PAMOATE 50 MG CAPSULE (FP) PO PRN (11:36)
--- NOTE | 2018-08-23 11:59 | PN ---
[facility] Progress Note Note: PATIENT CONTINUES WITH DETOX REGIMEN. C/O BODY ACHES. Laboratory Tests 08/20/18 08/21/18 08/21/18 22:22 07:30 07:30 WBC 5.5 RBC 4.00 Hgb 12.9 Hct 38.2 MCV 95.6 MCH 32.2 MCHC 33.7 RDW 13.4 Plt Count 276 MPV 7.2 L Sodium 144 Potassium 3.8 Chloride 109 H Carbon Dioxide 28 Anion Gap 7 L BUN 12 Creatinine 0.8 Creat Clearance w eGFR > 60 Random Glucose 68 L Calcium 8.7 Total Bilirubin 0.2 AST 8 L ALT 19 Alkaline Phosphatase 83 Total Protein 6.6 Albumin 3.6 Urine Color Yellow Urine Appearance Clear Urine pH 5.0 Ur Specific [place] 1.029 Urine Protein Negative Urine Glucose (UA) Negative Urine Ketones Negative Urine Blood Negative Urine Nitrite Negative Urine Bilirubin Negative Urine Urobilinogen 2.0 Ur Leukocyte Esterase Trace Urine WBC (Auto) 1 Urine RBC (Auto) 1 Urine Mucus Few RPR Titer 08/21/18 07:30 WBC RBC Hgb Hct MCV MCH MCHC RDW Plt Count MPV Sodium Potassium Chloride Carbon Dioxide Anion Gap BUN Creatinine Creat Clearance w eGFR Random Glucose Calcium Total Bilirubin AST ALT Alkaline Phosphatase Total Protein Albumin Urine Color Urine Appearance Urine pH Ur Specific [place] Urine Protein Urine Glucose (UA) Urine Ketones Urine Blood Urine Nitrite Urine Bilirubin Urine Urobilinogen Ur Leukocyte Esterase Urine WBC (Auto) Urine RBC (Auto) Urine Mucus RPR Titer Nonreactive Vital Signs Temperature 97.4 F L 08/23/18 09:45 Pulse Rate 86 08/23/18 09:45 Respiratory Rate 18 08/23/18 09:45 Blood Pressure 119/73 08/23/18 09:45 O2 Sat by Pulse Oximetry (%) PE: SKIN WARM AND DRY ALERT AND ORIENTED X 3 EXT FULL ROM, NO TREMORS AMB AD JEFFRY A/P: WITHDRAWAL SX CONTINUE TO DETOX ENCOURAGE ORAL FLUIDS ADD FLEXERIL PRN FOR BODY ACHES CONTINUE TO MONITOR
[2018-08-23] MEDS: CYCLOBENZAPRINE HCL 10 MG TABLET (FP) PO PRN ×2 (14:47→22:10)
[2018-08-23] MEDS: chlordiazePOXIDE HCL 10 MG CAPSULE PO SCH (22:09)
[2018-08-23] MEDS: THIAMINE HCL 100 MG TABLET (FP) PO SCH (22:09)
[2018-08-23] MEDS: MELATONIN 5 MG TABLETS PO PRN (22:10)
[2018-08-24] MEDS ORDERED: METHADONE HCL 40 MG DISPERSABLE TABLET ONE (03:57)
[2018-08-24] MEDS ORDERED: METHADONE HCL 10 MG TABLET ONE (03:57)
[2018-08-24] MEDS: METHADONE 80 MG, METHADONE 20 MG PO SCH (05:38)
[2018-08-24] MEDS: chlordiazePOXIDE HCL 10 MG CAPSULE PO SCH ×2 (05:38→10:13)
[2018-08-24] MEDS: NICOTINE POLACRILEX 2 MG GUM BC PRN (08:29)
[2018-08-24 09:12] VITALS: BP 116/76; PULSE 102; TEMP 97
[2018-08-24] MEDS: NICOTINE 14 MG/24 HOURS TOPICAL PATCH TD SCH (10:12)
[2018-08-24] MEDS: PRENATAL VITAMINS W/ FOLIC ACID TABLET (FP) PO SCH (10:12)
[2018-08-24] MEDS: BACITRACIN 0.9 GM PACKET TP SCH (10:12)
--- NOTE | 2018-08-24 11:12 | DS ---
[facility] Detox Discharge Summary Admission Date: 08/20/18 Discharge Date: 08/24/18 - History Present History: Alcohol Dependence, MMTP - Physical Exam Results Vital Signs: Vital Signs Temperature 97 F L 08/24/18 09:11 Pulse Rate 102 H 08/24/18 09:11 Respiratory Rate 16 08/24/18 09:11 Blood Pressure 116/76 08/24/18 09:11 O2 Sat by Pulse Oximetry (%) Pertinent Admission Physical Exam Findings: PATIENT COMPLETED DETOX WITHOUT ADVERSE EVENT. PATIENT ALERT AND ORIENTED X 3. SKIN WARM AND DRY. AMB AD JEFFRY. NO VISIBLE TREMORS OF EXTREMITIES NOTED. PATIENT ACCEPTED REHAB REFERRAL TO [facility]. PATIENT ENCOURAGED TO COMPLETE REHAB TO PREVENT RELAPSE. PATIENT GIVEN D/C INSTRUCTIONS BY NURSING STAFF. - Treatment Hospital Course: Detox Protocol Followed, Detoxed Safely, Responded well, Discharged Condition Good, Rehab Referral Accepted Patient has Accepted a Rehab Referral to: [facility] - Medication Discharge Medications: Ambulatory Orders Methadone [Dolophine -] 100 mg PO DAILY 08/20/18 - Diagnosis (1) Alcohol dependence with uncomplicated withdrawal Current Visit: Yes Status: Resolved (2) Sedative, hypnotic or anxiolytic dependence with withdrawal, uncomplicated Current Visit: Yes Status: Resolved - AMA Did Patient Leave Against Medical Advice: No
== END 2018-08-24 11:39 | disposition home or self-care (01) | DRG 773 ==
LOC: YASAS 11:30 → Y3N 17:21
PROC: HZ2ZZZZ Detoxification Services for Substance Abuse Treatment (ICD-10-PCS; principal; 2018-08-20)
DX: F10.230 Alcohol dependence with withdrawal, uncomplicated (principal); F13.230 Sedative, hypnotic or anxiolytic dependence with withdrawal, uncomplicated; F12.20 Cannabis dependence, uncomplicated; F11.20 Opioid dependence, uncomplicated; F17.210 Nicotine dependence, cigarettes, uncomplicated; D50.9 Iron deficiency anemia, unspecified; R05 Cough; R06.2 Wheezing
CPT/HCPCS: 36415; 80053; 81003; 81015; 85027; 86593; 93005; 93010; 94640